=== PATIENT | female | born 1975 | race American Indian/Alaskan Native ===

== ENCOUNTER 2020-11-01 01:21 | Observation (INO) | payer MEDICARE ==
[2020-11-01] MEDS ORDERED: ONDANSETRON 4 MG/2 ML INJ IV ONE ×2 (01:42→03:16)
[2020-11-01] MEDS ORDERED: SODIUM CHLORIDE 0.9% 1000 ML 1,000 ML IV ONE (01:42)
[2020-11-01] MEDS ORDERED: FAMOTIDINE 20 MG/2 ML INJ IV ONE (01:42)
[2020-11-01] MEDS ORDERED: DICYCLOMINE 20 MG/2 ML INJ IM ONE (01:45)
--- NOTE | 2020-11-01 01:49 | Event Note ---
ED Screening Note Date of service: 11/01/20 Time: 01:45 ED Screening Note: Patient is a 44 yo AA female with a h/o morbid obesity, chronic heavy tobacco abuse, HTN and NIDDM who presents to the ED with c/o acute onset persistent intractable nausea, vomiting, diarrhea, and diffuse abdominal pain that radiates to the epigastric area for the last 18 hours. Patient states that she has not been able to keep anything by mouth since the onset of these symptoms. Patient states that nobody else at home has had similar symptoms. Patient denies fever, chills, hematemesis, hematochezia, chest pain, dyspnea, dysuria, vaginal bleeding or urinary urgency and frequency and sore throat. This initial assessment/diagnostic orders/clinical plan/treatment(s) is/are subject to change based on patients health status, clinical progression and re- assessment by fellow clinical providers in the ED. Further treatment and workup at subsequent clinical providers discretion. Patient/guardian urged not to elope from the ED as their condition may be serious if not clinically assessed and managed. Initial orders include: CBC, CMP, Lipase, EKG, troponin, UA, hcg serum, abdo-pelvis CT scan w/contrast
[2020-11-01 01:57] LABS: Hematocrit 44.2 % (30.3-42.9); Hemoglobin 14.7 gm/dl (10.1-14.3); Mean Corpuscular HGB Conc 33 % (30-34); Mean Corpuscular Volume 85 fl (79-97); Platelet Count 462 K/mm3 (140-440); Red Blood Count 5.18 M/mm3 (3.65-5.03); Red Cell Distribution Width 15.1 % (13.2-15.2)
[2020-11-01 02:22] LABS: Albumin 4.4 g/dL (3.9-5); Calcium 10.3 mg/dL (8.4-10.2)
[2020-11-01] MEDS ORDERED: MORPHINE 4 MG/1 ML INJ IV ONE (03:16)
[2020-11-01] MEDS ORDERED: SODIUM CHLORIDE 0.9% 500 ML 500 ML IV ONE (03:16)
--- NOTE | 2020-11-01 03:25 | Emergency Department Report ---
HPI - General Chief Complaint: Abdominal Pain Time Seen by Provider: 11/01/20 03:07 - [facility] HPI: This is a 44-year-old -[place]ub[place] female presents to the emergency department from home with a complaint of a 1-day history of nausea with vomiting, diarrhea, and mid to upper abdominal pain. She has a past medical history of hypertension, diabetes, stage IV chronic kidney disease, gout. She has not taken anything for symptoms prior to presentation. No recent travel or sick contacts at home. She denies any dysuria, vaginal bleeding or discharge, f ever, chest pain, shortness of breath, lower extremity swelling. ED Past Medical Hx - Past Medical History Hx Hypertension: Yes Hx Diabetes: Yes Hx Renal Disease: Yes (stage 4) - Surgical History Additional Surgical History: - Social History Smoking Status: Unknown if ever smoked ED Review of Systems ROS: Stated complaint: DIZZY; ABDOMINAL PAIN;POSSIBLE CONSTIPATION Other details as noted in HPI Comment: All other systems reviewed and negative Constitutional: denies: chills, fever Eyes: denies: eye pain, vision change ENT: denies: ear pain, throat pain Respiratory: denies: cough, shortness of breath Cardiovascular: denies: chest pain, palpitations Gastrointestinal: abdominal pain, nausea, vomiting Genitourinary: denies: dysuria, discharge Musculoskeletal: denies: back pain, arthralgia Skin: denies: rash, lesions Neurological: denies: headache, weakness Physical Exam - Physical Exam Vital Signs: Vital Signs 11/01/20 01:40 Temperature 97.7 F Pulse Rate 122 H Respiratory 18 Rate Blood Pressure 188/138 O2 Sat by Pulse 98 Oximetry Physical Exam: GENERAL: The patient is ill-appearing. HENT: Normocephalic. Atraumatic. Patient has moist mucous membranes. EYES: Extraocular motions are intact. NECK: Supple. Trachea is midline. CHEST/LUNGS: Clear to auscultation. There is no respiratory distress noted. HEART/CARDIOVASCULAR: Regular. There is mild to moderate tachycardia. There is no murmur. ABDOMEN: Abdomen is soft. Generalized abdominal tenderness to palpation. Patient has normal bowel sounds. Obese habitus. SKIN: Skin is warm and dry. NEURO: The patient is awake, alert, and oriented. The patient is cooperative. The patient has no focal neurologic deficits. Normal speech. MUSCULOSKELETAL: There is no tenderness or deformity. There is no limitation range of motion. ED Course Vital Signs 11/01/20 01:40 Temperature 97.7 F Pulse Rate 122 H Respiratory 18 Rate Blood Pressure 188/138 O2 Sat by Pulse 98 Oximetry ED Medical Decision Making - Lab Data Result diagrams: 11/01/20 01:47 11/01/20 01:47 Lab Results 11/01/20 11/01/20 11/01/20 Range/Units 01:47 01:47 01:47 WBC 23.5 H (4.5-11.0) K/mm3 RBC 5.18 H (3.65-5.03) M/mm3 Hgb 14.7 H (10.1-14.3) gm/dl Hct 44.2 H (30.3-42.9) % MCV 85 (79-97) fl MCH 28 (28-32) pg MCHC 33 (30-34) % RDW 15.1 (13.2-15.2) % Plt Count 462 H (140-440) K/mm3 Add Manual Diff Complete Total Counted 100 Seg Neuts % (Manual) 90.0 H (40.0-70.0) % Lymphocytes % (Manual) 8.0 L (13.4-35.0) % Monocytes % (Manual) 2.0 (0.0-7.3) % Nucleated RBC % Not Reportable Seg Neutrophils # Man 21.2 H (1.8-7.7) K/mm3 Band Neutrophils # 0.0 K/mm3 Lymphocytes # (Manual) 1.9 (1.2-5.4) K/mm3 Abs React Lymphs (Man) 0.0 K/mm3 Monocytes # (Manual) 0.5 (0.0-0.8) K/mm3 Eosinophils # (Manual) 0.0 (0.0-0.4) K/mm3 Basophils # (Manual) 0.0 (0.0-0.1) K/mm3 Metamyelocytes # 0.0 K/mm3 Myelocytes # 0.0 K/mm3 Promyelocytes # 0.0 K/mm3 Blast Cells # 0.0 K/mm3 WBC Morphology Not Reportable Hypersegmented Neuts Not Reportable Hyposegmented Neuts Not Reportable Hypogranular Neuts Not Reportable Smudge Cells Not Reportable Toxic Granulation Not Reportable Toxic Vacuolation Not Reportable Dohle Bodies Not Reportable Pelger-Huet Anomaly Not Reportable Torri Rods Not Reportable Platelet Estimate Consistent w auto Clumped Platelets Not Reportable Plt Clumps, EDTA Not Reportable Large Platelets Rare Giant Platelets Rare Platelet Satelliting Not Reportable Plt Morphology Comment Not Reportable RBC Morphology Not Reportable Dimorphic RBCs Not Reportable Polychromasia Not Reportable Hypochromasia Not Reportable Poikilocytosis Not Reportable Anisocytosis Not Reportable Microcytosis Not Reportable Macrocytosis Not Reportable Spherocytes Not Reportable Pappenheimer Bodies Not Reportable Sickle Cells Not Reportable Target Cells Not Reportable Tear Drop Cells Not Reportable Ovalocytes Not Reportable Helmet Cells Not Reportable Schwarz-[place] Bodies Not Reportable [place] Rings Not Reportable Ho Cells Not Reportable Bite Cells Not Reportable Crenated Cell Not Reportable Elliptocytes Not Reportable Acanthocytes (Spur) Not Reportable Rouleaux Not Reportable Hemoglobin C Crystals Not Reportable Schistocytes Not Reportable Malaria parasites Not Reportable Mike Bodies Not Reportable Hem Pathologist Commnt No Sodium 136 L (137-145) mmol/L Potassium 3.4 L (3.6-5.0) mmol/L Chloride 95.6 L (98-107) mmol/L Carbon Dioxide 22 (22-30) mmol/L Anion Gap 22 mmol/L BUN 33 H (7-17) mg/dL Creatinine 3.5 H (0.6-1.2) mg/dL Estimated GFR 14 ml/min BUN/Creatinine Ratio 9 % Glucose 232 H (65-100) mg/dL Calcium 10.3 H (8.4-10.2) mg/dL Total Bilirubin 0.20 (0.1-1.2) mg/dL AST 23 (5-40) units/L ALT 34 (7-56) units/L Alkaline Phosphatase 156 H (35-129) units/L Troponin T (0.00-0.029) ng/mL Total Protein 7.8 (6.3-8.2) g/dL Albumin 4.4 (3.9-5) g/dL Albumin/Globulin Ratio 1.3 % Lipase (13-60) units/L HCG, Qual Negative (Negative) 11/01/20 Range/Units 01:47 WBC (4.5-11.0) K/mm3 RBC (3.65-5.03) M/mm3 Hgb (10.1-14.3) gm/dl Hct (30.3-42.9) % MCV (79-97) fl MCH (28-32) pg MCHC (30-34) % RDW (13.2-15.2) % Plt Count (140-440) K/mm3 Add Manual Diff Total Counted Seg Neuts % (Manual) (40.0-70.0) % Lymphocytes % (Manual) (13.4-35.0) % Monocytes % (Manual) (0.0-7.3) % Nucleated RBC % Seg Neutrophils # Man (1.8-7.7) K/mm3 Band Neutrophils # K/mm3 Lymphocytes # (Manual) (1.2-5.4) K/mm3 Abs React Lymphs (Man) K/mm3 Monocytes # (Manual) (0.0-0.8) K/mm3 Eosinophils # (Manual) (0.0-0.4) K/mm3 Basophils # (Manual) (0.0-0.1) K/mm3 Metamyelocytes # K/mm3 Myelocytes # K/mm3 Promyelocytes # K/mm3 Blast Cells # K/mm3 WBC Morphology Hypersegmented Neuts Hyposegmented Neuts Hypogranular Neuts Smudge Cells Toxic Granulation Toxic Vacuolation Dohle Bodies Pelger-Huet Anomaly Torri Rods Platelet Estimate Clumped Platelets Plt Clumps, EDTA Large Platelets Giant Platelets Platelet Satelliting Plt Morphology Comment RBC Morphology Dimorphic RBCs Polychromasia Hypochromasia Poikilocytosis Anisocytosis Microcytosis Macrocytosis Spherocytes Pappenheimer Bodies Sickle Cells Target Cells Tear Drop Cells Ovalocytes Helmet Cells Schwarz-[place] Bodies [place] Rings [place] Cells Bite Cells Crenated Cell Elliptocytes Acanthocytes (Spur) Rouleaux Hemoglobin C Crystals Schistocytes Malaria parasites Mike Bodies Hem Pathologist Commnt Sodium (137-145) mmol/L Potassium (3.6-5.0) mmol/L Chloride (98-107) mmol/L Carbon Dioxide (22-30) mmol/L Anion Gap mmol/L BUN (7-17) mg/dL Creatinine (0.6-1.2) mg/dL Estimated GFR ml/min BUN/Creatinine Ratio % Glucose (65-100) mg/dL Calcium (8.4-10.2) mg/dL Total Bilirubin (0.1-1.2) mg/dL AST (5-40) units/L ALT (7-56) units/L Alkaline Phosphatase (35-129) units/L Troponin T < 0.010 (0.00-0.029) ng/mL Total Protein (6.3-8.2) g/dL Albumin (3.9-5) g/dL Albumin/Globulin Ratio % Lipase 22 (13-60) units/L HCG, Qual (Negative) - Radiology Data Radiology results: report reviewed CT ABDOMEN AND PELVIS WITHOUT CONTRAST INDICATION: Abd pain CONTRAST: Without IV COMPARISON: None available. All CT scans at this location are performed using CT dose reduction for ALARA by means of automated exposure control. NOTE: Resolution is decreased and artifact is introduced by the patient's size. FINDINGS: Lung bases show mild increased interstitial markings of unclear chronicity though I suspect these are chronic. Mild pulmonary edema is not excluded. Liver is enlarged and has a length of 21 cm. Focal lesions are seen. Spleen is not enlarged. Gallbladder is been removed. No biliary dilatation is seen. No abdominal masses are noted. No urinary tract calculi or evidence of obstruction are seen. No free fluid is noted. No evidence of bowel obstruction is seen. Appendix appears within normal limits. Most of the colon is decompressed making evaluation difficult. This is seen from the mid ascending colon contiguously to the rectum. However, there is an appearance of mild diffuse wall thickening as can be seen with hoover colitis. No evidence of perforation is seen. No obstructive changes are noted. A large uterine fundal leiomyoma is seen measuring 8.7 cm. Broad-based fatty umbilical hernia is seen. IMPRESSION: 1. Selective colon suggesting mild pancolitis 2. Hepatomegaly 3. Large uterine leiomyoma - Medical Decision Making This patient presents to the emergency department with a 1 day history of abdominal pain, nausea and vomiting. She has significant hypertension and mild to moderate tachycardia. During examination the patient is actively vomiting into a bag. There is some reproducible abdominal tenderness to palpation. Patient's labs shows a leukocytosis of about 24,000. There is some hyperglycemia with a blood sugar of about 220 but the patient does not appear in diabetic either acidosis. There is renal insufficiency consistent with her stage IV chronic kidney disease. The patient has been given 2 different doses of IV analgesia, IV antiemetics, IV antihypertensive medication, a small amount of IV fluid. Upon reevaluation she still complains of abdominal pain, as well as nausea with vomiting. CT scan of the abdomen and pelvis shows concern for pancolitis. With the intractable abdominal pain, leukocytosis, and CT findings of pancolitis, as well as the persistent hypertension and tachycardia, the patient will be admitted to the hospital for further evaluation and treatment and was accepted for admission by the hospitalist, Dr. Hayward. Critical Care Time: No Critical care attestation.: If time is entered above; I have spent that time in minutes in the direct care of this critically ill patient, excluding procedure time. ED Disposition Clinical Impression: Colitis, Intractable abdominal pain, Hypertensive urgency Leukocytosis Qualifiers: Leukocytosis type: unspecified Qualified Code(s): D72.829 - Elevated white blood cell count, unspecified Chronic kidney disease Qualifiers: Chronic kidney disease stage: unspecified stage Qualified Code(s): N18.9 - Chronic kidney disease, unspecified Disposition: 09 OP ADMIT IP TO THIS HOSP Is pt being admited?: Yes Condition: Serious Time of Disposition: 05:09
[2020-11-01 03:34] LABS: Total Cells Counted 100
[2020-11-01 03:35] LABS: Giant Platelets Rare
[2020-11-01 03:36] LABS: Large Platelets Rare; Platelet Estimate Consistent w Auto
--- NOTE | 2020-11-01 04:12 | Cat Scan Report ---
CT ABDOMEN AND PELVIS WITHOUT CONTRAST INDICATION: Abd pain CONTRAST: Without IV COMPARISON: None available. All CT scans at this location are performed using CT dose reduction for ALARA by means of automated e xposure control. NOTE: Resolution is decreased and artifact is introduced by the patient's size. FINDINGS: Lung bases show mild increased interstitial markings of unclear chronicity though I suspect these are chronic. Mild pulmonary edema is not excluded. Liver is enlarged and has a length of 21 cm. Focal lesions are seen. Spleen is not enlarged. Gallblad brandin is been removed. No biliary dilatation is seen. No abdominal masses are noted. No urinary tract c alculi or evidence of obstruction are seen. No free fluid is noted. No evidence of bowel obstruction is seen. Appendix appears within normal limits. Most of the colon is decompressed making evaluation difficult. This is seen from the mid ascending co juliet contiguously to the rectum. However, there is an appearance of mild diffuse wall thickening as ca n be seen with hoover colitis. No evidence of perforation is seen. No obstructive changes are noted. A large uterine fundal leiomyoma is seen measuring 8.7 cm. Broad-based fatty umbilical hernia is seen. IMPRESSION: 1. Selective colon suggesting mild pancolitis 2. Hepatomegaly 3. Large uterine leiomyoma Signer Name: Santi Hagan MD Signed: 11/01/2020 4:08 AM Workstation Name: [id number]
[2020-11-01] MEDS ORDERED: PIPERACIL/TAZOBACTA 4.5/NS 100 4.5 GM/100 ML VIAL IV ONE (04:44)
[2020-11-01] MEDS ORDERED: HYDROmorphone 1 MG/1 ML INJ IV ONE ×2 (04:44→07:34)
[2020-11-01] MEDS ORDERED: hydrALAZINE 20 MG/1 ML INJ IV ONE (05:08)
[2020-11-01] MEDS ORDERED: ALBUTEROL 2.5 MG/3 ML NEBU IH PRN (05:36)
[2020-11-01] MEDS ORDERED: hydrALAZINE 20 MG/1 ML INJ IV PRN (05:38)
--- NOTE | 2020-11-01 05:45 | History and Physical Report ---
History of Present Illness Date of examination: 11/01/20 Date of admission: 11/01/20 05:09 Chief complaint: Abdominal pain, nausea vomiting History of present illness: 44-year-old -Romanian female with past medical history of chronic kidney disease stage IV, diabetes, gout, hypertension was brought to the emergency department from home with a complaint of a 1-day history of nausea with vomiting, diarrhea, and mid to upper abdominal pain. She has not taken anything for symptoms prior to presentation. No recent travel or sick contacts at home. She denies any dysuria, vaginal bleeding or discharge, fever, chest pain, shortness of breath, lower extremity swelling. In the emergency room patient CT scan of the abdomen shows mild pancolitis Past History Past Medical History: diabetes, hypertension, renal failure, other (Gout) Medications and Allergies Allergies Allergy/AdvReac Type Severity Reaction Status Date / Time No Known Allergies Allergy Verified 11/01/20 02:12 Active Meds: Active Medications Acetaminophen (Acetaminophen 325 Mg Tab) 650 mg PO Q4H PRN PRN Reason: Pain MILD(1-3)/Fever >100.5/PACHECO Ondansetron HCl (Ondansetron 4 Mg/2 Ml Inj) 4 mg IV Q8H PRN PRN Reason: Nausea And Vomiting Sodium Chloride (Sodium Chloride 0.9% 10 Ml Flush Syringe) 10 ml IV BID GARRETT Review of Systems Gastrointestinal: abdominal pain, nausea, vomiting Exam - Constitutional Vitals: Temp Pulse Resp BP Pulse Ox 97.7 F 114 H 18 192/110 100 11/01/20 01:40 11/01/20 05:00 11/01/20 05:00 11/01/20 05:00 11/01/20 05:00 General appearance: Present: no acute distress, well-nourished - EENT Eyes: Present: PERRL ENT: hearing intact, clear oral mucosa - Neck Neck: Present: supple, normal ROM - Respiratory Respiratory effort: normal Respiratory: bilateral: CTA - Cardiovascular Heart Sounds: Present: S1 & S2. Absent: rub, click - Extremities Extremities: pulses symmetrical, No edema Peripheral Pulses: within normal limits - Abdominal General gastrointestinal: Present: soft, non-tender, non-distended, normal bowel sounds Female genitourinary: Present: normal - Integumentary Integumentary: Present: clear, warm, dry - Musculoskeletal Musculoskeletal: gait normal, strength equal bilaterally - Psychiatric Psychiatric: appropriate mood/affect, intact judgment & insight - Neurologic Neurologic: CNII-XII intact, moves all extremities HEART Score - HEART Score Troponin: Troponin T < 0.010 ng/mL (0.00-0.029) 11/01/20 01:47 Results - Labs CBC & Chem 7: 11/01/20 01:47 11/01/20 01:47 Labs: Laboratory Last Values WBC 23.5 K/mm3 (4.5-11.0) H 11/01/20 01:47 RBC 5.18 M/mm3 (3.65-5.03) H 11/01/20 01:47 Hgb 14.7 gm/dl (10.1-14.3) H 11/01/20 01:47 Hct 44.2 % (30.3-42.9) H 11/01/20 01:47 MCV 85 fl (79-97) 11/01/20 01:47 MCH 28 pg (28-32) 11/01/20 01:47 MCHC 33 % (30-34) 11/01/20 01:47 RDW 15.1 % (13.2-15.2) 11/01/20 01:47 Plt Count 462 K/mm3 (140-440) H 11/01/20 01:47 Add Manual Diff Complete 11/01/20 01:47 Total Counted 100 11/01/20 01:47 Seg Neuts % (Manual) 90.0 % (40.0-70.0) H 11/01/20 01:47 Lymphocytes % (Manual) 8.0 % (13.4-35.0) L 11/01/20 01:47 Monocytes % (Manual) 2.0 % (0.0-7.3) 11/01/20 01:47 Nucleated RBC % Not Reportable 11/01/20 01:47 Seg Neutrophils # Man 21.2 K/mm3 (1.8-7.7) H 11/01/20 01:47 Band Neutrophils # 0.0 K/mm3 11/01/20 01:47 Lymphocytes # (Manual) 1.9 K/mm3 (1.2-5.4) 11/01/20 01:47 Abs React Lymphs (Man) 0.0 K/mm3 11/01/20 01:47 Monocytes # (Manual) 0.5 K/mm3 (0.0-0.8) 11/01/20 01:47 Eosinophils # (Manual) 0.0 K/mm3 (0.0-0.4) 11/01/20 01:47 Basophils # (Manual) 0.0 K/mm3 (0.0-0.1) 11/01/20 01:47 Metamyelocytes # 0.0 K/mm3 11/01/20 01:47 Myelocytes # 0.0 K/mm3 11/01/20 01:47 Promyelocytes # 0.0 K/mm3 11/01/20 01:47 Blast Cells # 0.0 K/mm3 11/01/20 01:47 WBC Morphology Not Reportable 11/01/20 01:47 Hypersegmented Neuts Not Reportable 11/01/20 01:47 Hyposegmented Neuts Not Reportable 11/01/20 01:47 Hypogranular Neuts Not Reportable 11/01/20 01:47 Smudge Cells Not Reportable 11/01/20 01:47 Toxic Granulation Not Reportable 11/01/20 01:47 Toxic Vacuolation Not Reportable 11/01/20 01:47 Dohle Bodies Not Reportable 11/01/20 01:47 Pelger-Huet Anomaly Not Reportable 11/01/20 01:47 Torri Rods Not Reportable 11/01/20 01:47 Platelet Estimate Consistent w auto 11/01/20 01:47 Clumped Platelets Not Reportable 11/01/20 01:47 Plt Clumps, EDTA Not Reportable 11/01/20 01:47 Large Platelets Rare 11/01/20 01:47 Giant Platelets Rare 11/01/20 01:47 Platelet Satelliting Not Reportable 11/01/20 01:47 Plt Morphology Comment Not Reportable 11/01/20 01:47 RBC Morphology Not Reportable 11/01/20 01:47 Dimorphic RBCs Not Reportable 11/01/20 01:47 Polychromasia Not Reportable 11/01/20 01:47 Hypochromasia Not Reportable 11/01/20 01:47 Poikilocytosis Not Reportable 11/01/20 01:47 Anisocytosis Not Reportable 11/01/20 01:47 Microcytosis Not Reportable 11/01/20 01:47 Macrocytosis Not Reportable 11/01/20 01:47 Spherocytes Not Reportable 11/01/20 01:47 Pappenheimer Bodies Not Reportable 11/01/20 01:47 Sickle Cells Not Reportable 11/01/20 01:47 Target Cells Not Reportable 11/01/20 01:47 Tear Drop Cells Not Reportable 11/01/20 01:47 Ovalocytes Not Reportable 11/01/20 01:47 Helmet Cells Not Reportable 11/01/20 01:47 Schwarz-[place]ll[place] Bodies Not Reportable 11/01/20 01:47 [place] Rings Not Reportable 11/01/20 01:47 [place] Cells Not Reportable 11/01/20 01:47 Bite Cells Not Reportable 11/01/20 01:47 Crenated Cell Not Reportable 11/01/20 01:47 Elliptocytes Not Reportable 11/01/20 01:47 Acanthocytes (Spur) Not Reportable 11/01/20 01:47 Rouleaux Not Reportable 11/01/20 01:47 Hemoglobin C Crystals Not Reportable 11/01/20 01:47 Schistocytes Not Reportable 11/01/20 01:47 Malaria parasites Not Reportable 11/01/20 01:47 Mike Bodies Not Reportable 11/01/20 01:47 Hem Pathologist Commnt No 11/01/20 01:47 Sodium 136 mmol/L (137-145) L 11/01/20 01:47 Potassium 3.4 mmol/L (3.6-5.0) L 11/01/20 01:47 Chloride 95.6 mmol/L (98-107) L 11/01/20 01:47 Carbon Dioxide 22 mmol/L (22-30) 11/01/20 01:47 Anion Gap 22 mmol/L 11/01/20 01:47 BUN 33 mg/dL (7-17) H 11/01/20 01:47 Creatinine 3.5 mg/dL (0.6-1.2) H 11/01/20 01:47 Estimated GFR 14 ml/min 11/01/20 01:47 BUN/Creatinine Ratio 9 % 11/01/20 01:47 Glucose 232 mg/dL (65-100) H 11/01/20 01:47 Calcium 10.3 mg/dL (8.4-10.2) H 11/01/20 01:47 Total Bilirubin 0.20 mg/dL (0.1-1.2) 11/01/20 01:47 AST 23 units/L (5-40) 11/01/20 01:47 ALT 34 units/L (7-56) 11/01/20 01:47 Alkaline Phosphatase 156 units/L (35-129) H 11/01/20 01:47 Troponin T < 0.010 ng/mL (0.00-0.029) 11/01/20 01:47 Total Protein 7.8 g/dL (6.3-8.2) 11/01/20 01:47 Albumin 4.4 g/dL (3.9-5) 11/01/20 01:47 Albumin/Globulin Ratio 1.3 % 11/01/20 01:47 Lipase 22 units/L (13-60) 11/01/20 01:47 HCG, Qual Negative (Negative) 11/01/20 01:47 - Imaging and Cardiology CT scan - abdomen: report reviewed Assessment and Plan VTE prophylaxis?: Chemical Plan of care discussed with patient/family: Yes - Patient Problems (1) Colitis Current Visit: Yes Status: Acute Plan to address problem: Admit the patient to the medical floor. N.p.o. IV fluid normal saline at the rate of 100 cc/h. Pepcid 20 mg IV every 12 hours. Zofran 4 mg IV every 6 hours as needed. Zosyn 4.5 g IV every 8 hours. Flagyl 500 mg IV every 8 hours. We do the blood culture. We also consult GI for evaluation (2) Nausea & vomiting Current Visit: Yes Status: Acute Plan to address problem: N.p.o. IV fluid normal saline at the rate of 100 cc/h. Pepcid 20 mg IV every 12 hours. Zofran 4 mg IV every 6 hours as needed. (3) Diabetes 1.5, managed as type 2 Current Visit: Yes Status: Acute Plan to address problem: We will put the patient on insulin sliding scale Humalog Accu-Chek every 6 hours. Repeat BMP in the morning. (4) Chronic kidney disease Current Visit: Yes Status: Acute Qualifiers: Chronic kidney disease stage: unspecified stage Qualified Code(s): N18.9 - Chronic kidney disease, unspecified Plan to address problem: We avoid the nephrotoxic drug. We dose the medication as per creatinine clearance. Repeat BMP in the morning if needed will consult nephrology in the morning (5) Hypertensive urgency Current Visit: Yes Status: Acute Plan to address problem: Hydralazine 10 mg IV every 6 hours as needed. Norvasc 5 mg p.o. daily. We will monitor the blood pressure closely (6) Leukocytosis Current Visit: Yes Status: Acute Qualifiers: Leukocytosis type: unspecified Qualified Code(s): D72.829 - Elevated white blood cell count, unspecified Plan to address problem: Zosyn 4.5 g IV every 8 hours. Flagyl 500 mg IV every 8 hours. We do the blood culture. Recheck CBC in the morning (7) Intractable abdominal pain Current Visit: Yes Status: Acute Plan to address problem: Pepcid 20 mg IV every 12 hours. Tylenol 650 mg p.o. every 6 hours as needed. Morphine 2 mg IV every 4 hours as needed (8) DVT prophylaxis Current Visit: Yes Status: Acute Plan to address problem: Heparin 5000 units subcu every 8 hours for DVT prophylaxis. Pepcid 20 mg IV every 12 hours for GI prophylaxis. Patient is a full code
[2020-11-01] MEDS ORDERED: DEXTROSE 50% IN WATER (25GM) 50 ML SYRINGE IV PRN (05:48)
[2020-11-01] MEDS ORDERED: PIPERACIL/TAZOBACTA 4.5/NS 100 4.5 GM/100 ML VIAL IV SCH (06:00)
[2020-11-01] MEDS ORDERED: SODIUM CHLORIDE 0.45% 1000 ML 1,000 ML IV SCH (06:00)
[2020-11-01] MEDS ORDERED: D5W/0.45% NACL 1,000 ML IV SCH (06:00)
[2020-11-01] MEDS: ONDANSETRON 4 MG/2 ML INJ IV PRN ×2 (07:40→14:17)
[2020-11-01] MEDS: FAMOTIDINE 20 MG/2 ML INJ IV SCH ×2 (08:23→09:51)
[2020-11-01] MEDS: IPRATROPIUM/ALBUTEROL SULFATE 3 ML AMPUL.NEB IH SCH ×3 (08:45→19:54)
[2020-11-01] MEDS: HEPARIN 5,000 UNIT/1 ML VIAL SUB-Q SCH ×3 (09:49→13:12)
[2020-11-01] MEDS: metroNIDAZOLE/NS 500 MG/100 ML 500 MG/100 ML BAG IV SCH ×4 (09:49→19:57)
[2020-11-01] MEDS: INSULIN LISPRO 100 UNIT/ML SUB-Q SCH ×3 (09:50→18:49)
[2020-11-01] MEDS ORDERED: FAMOTIDINE 20 MG/2 ML INJ IV SCH (10:00)
--- NOTE | 2020-11-01 10:37 | Progress Note ---
Assessment and Plan Assessment and plan: -- acute colitis Current Visit: Yes Status: Acute N.p.o. 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 status Insulin as needed --Chronic kidney disease Current Visit: Yes Status: Acute Closely monitor renal function, avoid nephrotoxins, nephrology consulted --Hypertensive urgency present on admission Current Visit: Yes Status: Acute Hydralazine 10 mg IV every 6 hours as needed. Closely monitor blood pressures and adjust as needed --Hypokalemia; replenish per protocol and monitor levels --Leukocytosis Current Visit: Yes Status: Acute Due to acute colitis, continue antibiotics follow cultures -- Intractable abdominal pain Current Visit: Yes Status: Acute Pepcid 20 mg IV every 12 hours. Tylenol 650 mg p.o. every 6 hours as needed. Morphine 2 mg IV every 4 hours as needed --DVT prophylaxis Current Visit: Yes Status: Acute Heparin 5000 units subcu every 8 hours for DVT prophylaxis. Pepcid 20 mg IV every 12 hours for GI prophylaxis. Patient is a full code We will closely monitor the patient and adjust management as needed Plan of care reviewed with patient and her mother Ms. Rosaura Emanuel over the phone Pending GI evaluation History Interval history: I have seen and examined the patient at the bedside Patient complains of severe abdominal pain and intractable nausea vomiting In mild distress Vital signs noted Hospitalist Physical - Constitutional Vitals: Temp Pulse Resp BP Pulse Ox 97.7 F 123 H 17 185/102 98 11/01/20 01:40 11/01/20 08:23 11/01/20 07:00 11/01/20 08:23 11/01/20 07:00 General appearance: Present: mild distress, well-nourished, obese - EENT Eyes: Present: PERRL, EOM intact - Neck Neck: Present: supple, normal ROM - Respiratory Respiratory effort: normal Respiratory: bilateral: diminished, negative: rales, rhonchi, wheezing - Cardiovascular Rhythm: regular Heart Sounds: Present: S1 & S2 - Extremities Extremities: no ischemia, No edema - Abdominal General gastrointestinal: soft, tender (Mild guarding), non-distended, normal bowel sounds - Integumentary Integumentary: Present: clear, warm - Psychiatric Psychiatric: agitated, other (Crying because of pain) - Neurologic Neurologic: moves all extremities HEART Score - HEART Score Troponin: Troponin T < 0.010 ng/mL (0.00-0.029) 11/01/20 01:47 Results - Labs CBC & Chem 7: 11/01/20 18:36 11/01/20 18:35 Labs: Laboratory Last Values WBC 23.5 K/mm3 (4.5-11.0) H 11/01/20 01:47 RBC 5.18 M/mm3 (3.65-5.03) H 11/01/20 01:47 Hgb 14.7 gm/dl (10.1-14.3) H 11/01/20 01:47 Hct 44.2 % (30.3-42.9) H 11/01/20 01:47 MCV 85 fl (79-97) 11/01/20 01:47 MCH 28 pg (28-32) 11/01/20 01:47 MCHC 33 % (30-34) 11/01/20 01:47 RDW 15.1 % (13.2-15.2) 11/01/20 01:47 Plt Count 462 K/mm3 (140-440) H 11/01/20 01:47 Add Manual Diff Complete 11/01/20 01:47 Total Counted 100 11/01/20 01:47 Seg Neuts % (Manual) 90.0 % (40.0-70.0) H 11/01/20 01:47 Lymphocytes % (Manual) 8.0 % (13.4-35.0) L 11/01/20 01:47 Monocytes % (Manual) 2.0 % (0.0-7.3) 11/01/20 01:47 Nucleated RBC % Not Reportable 11/01/20 01:47 Seg Neutrophils # Man 21.2 K/mm3 (1.8-7.7) H 11/01/20 01:47 Band Neutrophils # 0.0 K/mm3 11/01/20 01:47 Lymphocytes # (Manual) 1.9 K/mm3 (1.2-5.4) 11/01/20 01:47 Abs React Lymphs (Man) 0.0 K/mm3 11/01/20 01:47 Monocytes # (Manual) 0.5 K/mm3 (0.0-0.8) 11/01/20 01:47 Eosinophils # (Manual) 0.0 K/mm3 (0.0-0.4) 11/01/20 01:47 Basophils # (Manual) 0.0 K/mm3 (0.0-0.1) 11/01/20 01:47 Metamyelocytes # 0.0 K/mm3 11/01/20 01:47 Myelocytes # 0.0 K/mm3 11/01/20 01:47 Promyelocytes # 0.0 K/mm3 11/01/20 01:47 Blast Cells # 0.0 K/mm3 11/01/20 01:47 WBC Morphology Not Reportable 11/01/20 01:47 Hypersegmented Neuts Not Reportable 11/01/20 01:47 Hyposegmented Neuts Not Reportable 11/01/20 01:47 Hypogranular Neuts Not Reportable 11/01/20 01:47 Smudge Cells Not Reportable 11/01/20 01:47 Toxic Granulation Not Reportable 11/01/20 01:47 Toxic Vacuolation Not Reportable 11/01/20 01:47 Dohle Bodies Not Reportable 11/01/20 01:47 Pelger-Huet Anomaly Not Reportable 11/01/20 01:47 Torri Rods Not Reportable 11/01/20 01:47 Platelet Estimate Consistent w auto 11/01/20 01:47 Clumped Platelets Not Reportable 11/01/20 01:47 Plt Clumps, EDTA Not Reportable 11/01/20 01:47 Large Platelets Rare 11/01/20 01:47 Giant Platelets Rare 11/01/20 01:47 Platelet Satelliting Not Reportable 11/01/20 01:47 Plt Morphology Comment Not Reportable 11/01/20 01:47 RBC Morphology Not Reportable 11/01/20 01:47 Dimorphic RBCs Not Reportable 11/01/20 01:47 Polychromasia Not Reportable 11/01/20 01:47 Hypochromasia Not Reportable 11/01/20 01:47 Poikilocytosis Not Reportable 11/01/20 01:47 Anisocytosis Not Reportable 11/01/20 01:47 Microcytosis Not Reportable 11/01/20 01:47 Macrocytosis Not Reportable 11/01/20 01:47 Spherocytes Not Reportable 11/01/20 01:47 Pappenheimer Bodies Not Reportable 11/01/20 01:47 Sickle Cells Not Reportable 11/01/20 01:47 Target Cells Not Reportable 11/01/20 01:47 Tear Drop Cells Not Reportable 11/01/20 01:47 Ovalocytes Not Reportable 11/01/20 01:47 Helmet Cells Not Reportable 11/01/20 01:47 Schwarz-[place] Bodies Not Reportable 11/01/20 01:47 [place] Rings Not Reportable 11/01/20 01:47 Ho Cells Not Reportable 11/01/20 01:47 Bite Cells Not Reportable 11/01/20 01:47 Crenated Cell Not Reportable 11/01/20 01:47 Elliptocytes Not Reportable 11/01/20 01:47 Acanthocytes (Spur) Not Reportable 11/01/20 01:47 Rouleaux Not Reportable 11/01/20 01:47 Hemoglobin C Crystals Not Reportable 11/01/20 01:47 Schistocytes Not Reportable 11/01/20 01:47 Malaria parasites Not Reportable 11/01/20 01:47 Mike Bodies Not Reportable 11/01/20 01:47 Hem Pathologist Commnt No 11/01/20 01:47 Sodium 136 mmol/L (137-145) L 11/01/20 01:47 Potassium 3.4 mmol/L (3.6-5.0) L 11/01/20 01:47 Chloride 95.6 mmol/L (98-107) L 11/01/20 01:47 Carbon Dioxide 22 mmol/L (22-30) 11/01/20 01:47 Anion Gap 22 mmol/L 11/01/20 01:47 BUN 33 mg/dL (7-17) H 11/01/20 01:47 Creatinine 3.5 mg/dL (0.6-1.2) H 11/01/20 01:47 Estimated GFR 14 ml/min 11/01/20 01:47 BUN/Creatinine Ratio 9 % 11/01/20 01:47 Glucose 232 mg/dL (65-100) H 11/01/20 01:47 Calcium 10.3 mg/dL (8.4-10.2) H 11/01/20 01:47 Total Bilirubin 0.20 mg/dL (0.1-1.2) 11/01/20 01:47 AST 23 units/L (5-40) 11/01/20 01:47 ALT 34 units/L (7-56) 11/01/20 01:47 Alkaline Phosphatase 156 units/L (35-129) H 11/01/20 01:47 Troponin T < 0.010 ng/mL (0.00-0.029) 11/01/20 01:47 Total Protein 7.8 g/dL (6.3-8.2) 11/01/20 01:47 Albumin 4.4 g/dL (3.9-5) 11/01/20 01:47 Albumin/Globulin Ratio 1.3 % 11/01/20 01:47 Lipase 22 units/L (13-60) 11/01/20 01:47 HCG, Qual Negative (Negative) 11/01/20 01:47 Active Medications - Current Medications Current Medications: Generic Name Dose Route Start Last Admin Trade Name Freq PRN Reason Stop Dose Admin Acetaminophen 650 mg 11/01/20 05:36 Acetaminophen 325 Mg Tab PO Q4H PRN Pain MILD(1-3)/Fever >100.5/PACHECO Albuterol 2.5 mg 11/01/20 05:36 Albuterol 2.5 Mg/3 Ml Nebu IH Q4HRT PRN Shortness Of Breath Albuterol/Ipratropium 1 ampul 11/01/20 08:00 11/01/20 08:45 Ipratropium/Albuterol Sulfate 3 Ml Ampul.Neb IH Not Given Q6HRT GARRETT Dextrose 50 ml 11/01/20 05:48 Dextrose 50% In Water (25gm) 50 Ml Syringe IV Q30MIN PRN Hypoglycemia Protocol Famotidine 20 mg 11/01/20 10:00 11/01/20 09:51 Famotidine 20 Mg/2 Ml Inj IV Not Given DAILY [facility] Heparin Sodium (Porcine) 5,000 unit 11/01/20 06:00 11/01/20 09:49 Heparin 5,000 Unit/1 Ml Vial SUB-Q Not Given Q8HR [facility] Hydralazine HCl 10 mg 11/01/20 05:38 11/01/20 08:23 Hydralazine 20 Mg/1 Ml Inj IV 10 mg Q6H PRN Administration htn Metronidazole 500 mg in 100 mls @ 100 mls/hr 11/01/20 06:00 11/01/20 09:49 Flagyl 500 Mg/100 Ml IV Not Given Q8H [facility] Protocol Piperacillin Sod/Tazobactam Sod 3.375 gm in 50 mls @ 100 mls/hr 11/01/20 14:00 Zosyn/Ns 3.375gm/50ml IV Q8H [facility] Protocol Sodium Chloride 1,000 mls @ 100 mls/hr 11/01/20 06:00 Nacl 0.45% 1000 Ml IV DIRECT GARRETT Insulin Human Lispro 0 unit 11/01/20 06:00 11/01/20 09:50 Insulin Lispro 100 Unit/Ml SUB-Q Not Given Q6HR [facility] Protocol Morphine Sulfate 2 mg 11/01/20 05:36 Morphine 2 Mg/1 Ml Inj IV Q4H PRN Pain, Moderate (4-6) Ondansetron HCl 4 mg 11/01/20 05:36 11/01/20 07:40 Ondansetron 4 Mg/2 Ml Inj IV 4 mg Q8H PRN Administration Nausea And Vomiting Sodium Chloride 10 ml 11/01/20 10:00 Sodium Chloride 0.9% 10 Ml Flush Syringe IV BID GARRETT Sodium Chloride 10 ml 11/01/20 05:36 Sodium Chloride 0.9% 10 Ml Flush Syringe IV PRN PRN LINE FLUSH Nutrition/Malnutrition Assess - Dietary Evaluation Nutrition/Malnutrition Findings: Nutrition Notes Start: 11/01/20 10:19 Freq: Status: Active Protocol: Document 11/01/20 10:19 LP (Rec: 11/01/20 10:33 LP [id number]) Nutrition Notes Need for Assessment generated from: MD Order Initial or Follow up Assessment Current Diagnosis CKD(stage I-IV),Diabetes, Hypertension Other Pertinent Diagnosis Abdominal pain, N/V Current Diet NPO Labs/Tests Na 136 K 3.4 BUN 33 Cr 3.5 BG 232 Pertinent Medications 1/2 NS at 100ml/hr Height 5 ft 9 in Weight 122.47 kg [place] Body Weight (kg) 65.90 BMI 39.9 Weight change and time frame 5% wt loss in 5 days Weight Status Morbidly Obese Subjective/Other Information Consult for diet education. Pt with abdominal pain and has not ate anything since . Pt UBW 284lbs. Pt does not consume banana. Pt states not taking medications due to being sick. Pt will be ok to have ONS. Burn Absent Trauma Absent GI Symptoms Nausea,Vomiting,Other Current % PO Negligible Minimum of two criteria Yes Energy Intake (severe) < or equal to 50% Estimated Energy Requirement > or equal to 5 days Interpretation of Weight Loss (severe) >2% in 1 week Nutrition Diagnosis Malnutrition Etiology chronic illness As Evidenced by Signs and Symptoms 5% wt loss in 5 day, less than 50% of meals in 5 days Nutrition Diagnosis Inadequate oral intake Etiology abdominal pain As Evidenced by Signs and Symptoms Pt with N/V and unable to consume PO Is patient on ventilator? No Is Patient Ambulatory and/or Out of Bed Yes REE-([facility]-ambulatory/OOB) [ 2533.804 [id number]] Kcal/Kg value to use for calculation 15 Approximate Energy Requirements Using 1837 kcal/Kg Calculation Used for Recommendations Kcal/kg Additional Notes Protein needs are 75-94g (0.8- 1g/kg 93.5g/kg) Fluid needs are 1 ml/kcal Nutrition Intervention Change Diet Order: Advance diet as feasible Add Supplement/Snack (indicate name/kcal once diet advanced Ensure /protein ) clear BID or Ensure Enlive BID Goal #1 Advance diet as feasible Anticipated Discharge Needs: Unable to determine at this time Follow-Up By: 11/03/20 Additional Comments Follow for diet advancement, intakes and add ONS
[2020-11-01] MEDS: hydrALAZINE 25 MG TAB PO SCH ×2 (12:00→22:00)
[2020-11-01] MEDS: PIPERACILLIN/TAZOBACTAM 3.375 3.375 GM/50 ML BAG IV SCH ×2 (13:14→22:00)
[2020-11-01] MEDS: MORPHINE 2 MG/1 ML INJ IV PRN ×2 (13:19→17:53)
[2020-11-01] MEDS ORDERED: ONDANSETRON 4 MG/2 ML INJ IV PRN (14:13)
[2020-11-01] MEDS: hydrALAZINE 20 MG/1 ML INJ IV PRN ×2 (15:33→23:15)
[2020-11-01] MEDS ORDERED: MORPHINE 2 MG/1 ML INJ IV ONE (17:56)
--- NOTE | 2020-11-01 17:57 | Consultation ---
History of Present Illness - Reason for Consult Consult date: 11/01/20 Abdominal pain, N/V Requesting physician: MARIAA SUAZO - History of Present Illness Ms. Emanuel is a 44-year-old woman who came from [place] to drop off her grandchildren recently. She states she was well but did not have a bowel movement for approximately a week until yesterday morning. She subsequently states she developed nausea vomiting and epigastric pain. She took Zofran ODT as well as Pepto-Bismol at home without relief. The pain has been unremitting and gradually progressive. Have been no clear exacerbating or relieving factors. There is no fever chills or sweats. She had another soft brown bowel movement this morning. There is no GI bleeding. Patient denies prior similar symptoms. She has a history of poorly controlled diabetes, hypertension, and stage IV chronic kidney disease. She has a history of "stomach ulcers" since she was a little girl. No endoscopy and years. She has a 4 to 5-year history of intermittent nausea without any clear etiology. She states she had ultrasound and CAT scan done in the past that were negative. Medications reviewed. Past History Past Medical History: diabetes, hypertension, renal failure (Stage 4 CKD), other (Gout) Past Surgical History: cholecystectomy Social history: denies: smoking, alcohol abuse Family history: no significant family history Medications and Allergies Allergies Allergy/AdvReac Type Severity Reaction Status Date / Time No Known Allergies Allergy Verified 11/01/20 02:12 Home Medications Medication Instructions Recorded Confirmed Last Taken Type Semaglutide [Ozempic] 0.5 mg SQ 1XW 11/01/20 11/01/20 Unknown History Active Meds: Active Medications Acetaminophen (Acetaminophen 325 Mg Tab) 650 mg PO Q4H PRN PRN Reason: Pain MILD(1-3)/Fever >100.5/PACHECO Albuterol (Albuterol 2.5 Mg/3 Ml Nebu) 2.5 mg IH Q4HRT PRN PRN Reason: Shortness Of Breath Albuterol/Ipratropium (Ipratropium/Albuterol Sulfate 3 Ml Ampul.Neb) 1 ampul IH Q6HRT GARRETT Last Admin: 11/01/20 14:15 Dose: Not Given Documented by: Dextrose (Dextrose 50% In Water (25gm) 50 Ml Syringe) 50 ml IV Q30MIN PRN; Protocol PRN Reason: Hypoglycemia Famotidine (Famotidine 20 Mg/2 Ml Inj) 20 mg IV DAILY [facility] Last Admin: 11/01/20 09:51 Dose: Not Given Documented by: Heparin Sodium (Porcine) (Heparin 5,000 Unit/1 Ml Vial) 5,000 unit SUB-Q Q8HR GARRETT Last Admin: 11/01/20 13:12 Dose: Not Given Documented by: Hydralazine HCl (Hydralazine 25 Mg Tab) 50 mg PO Q8HR G[facility]RETT Last Admin: 11/01/20 12:00 Dose: 50 mg Documented by: Hydralazine HCl (Hydralazine 20 Mg/1 Ml Inj) 10 mg IV Q4H PRN PRN Reason: htn Last Admin: 11/01/20 15:33 Dose: 10 mg Documented by: Metronidazole (Flagyl 500 Mg/100 Ml) 500 mg in 100 mls @ 100 mls/hr IV Q8H [facility]; Protocol Last Admin: 11/01/20 13:08 Dose: Not Given Documented by: Piperacillin Sod/Tazobactam Sod (Zosyn/Ns 3.375gm/50ml) 3.375 gm in 50 mls @ 100 mls/hr IV Q8H [facility]; Protocol Last Admin: 11/01/20 13:14 Dose: 100 mls/hr Documented by: Sodium Chloride (Nacl 0.45% 1000 Ml) 1,000 mls @ 100 mls/hr IV DIRECT GARRETT Last Admin: 11/01/20 11:40 Dose: 100 mls/hr Documented by: Insulin Human Lispro (Insulin Lispro 100 Unit/Ml) 0 unit SUB-Q Q6HR [facility]; Protocol Last Admin: 11/01/20 12:01 Dose: Not Given Documented by: Morphine Sulfate (Morphine 2 Mg/1 Ml Inj) 2 mg IV Q4H PRN PRN Reason: Pain, Moderate (4-6) Last Admin: 11/01/20 13:19 Dose: 2 mg Documented by: Ondansetron HCl (Ondansetron 4 Mg/2 Ml Inj) 4 mg IV Q8H PRN PRN Reason: Nausea And Vomiting Last Admin: 11/01/20 14:17 Dose: 4 mg Documented by: Ondansetron HCl (Ondansetron 4 Mg/2 Ml Inj) 4 mg IV Q4H PRN PRN Reason: Nausea And Vomiting Sodium Chloride (Sodium Chloride 0.9% 10 Ml Flush Syringe) 10 ml IV BID GARRETT Last Admin: 11/01/20 12:01 Dose: 10 ml Documented by: Sodium Chloride (Sodium Chloride 0.9% 10 Ml Flush Syringe) 10 ml IV PRN PRN PRN Reason: LINE FLUSH Review of Systems All systems: negative (as per HPI) Exam - Constitutional Vitals: Temp Pulse Resp BP Pulse Ox 97.7 F 120 H 20 154/112 99 11/01/20 01:40 11/01/20 15:38 11/01/20 15:38 11/01/20 15:33 11/01/20 15:38 General appearance: Present: severe distress (moderately severe, moving about on bed to try and get comfortable.) - EENT Eyes: Present: PERRL, EOM intact ENT: hearing intact - Respiratory Respiratory effort: normal Respiratory: bilateral: CTA - Cardiovascular Rhythm: regular Heart Sounds: Present: S1 & S2 - Abdominal General gastrointestinal: Present: soft, tender (Mild epigastric) Results - Labs CBC & Chem 7: 11/01/20 01:47 11/01/20 01:47 Labs: Abnormal lab results 11/01/20 11/01/20 11/01/20 Range/Units 01:47 01:47 12:07 WBC 23.5 H (4.5-11.0) K/mm3 RBC 5.18 H (3.65-5.03) M/mm3 Hgb 14.7 H (10.1-14.3) gm/dl Hct 44.2 H (30.3-42.9) % Plt Count 462 H (140-440) K/mm3 Seg Neuts % (Manual) 90.0 H (40.0-70.0) % Lymphocytes % (Manual) 8.0 L (13.4-35.0) % Seg Neutrophils # Man 21.2 H (1.8-7.7) K/mm3 Sodium 136 L (137-145) mmol/L Potassium 3.4 L (3.6-5.0) mmol/L Chloride 95.6 L (98-107) mmol/L BUN 33 H (7-17) mg/dL Creatinine 3.5 H (0.6-1.2) mg/dL Glucose 232 H (65-100) mg/dL POC Glucose 186 H (70-105) mg/dL Calcium 10.3 H (8.4-10.2) mg/dL Alkaline Phosphatase 156 H (35-129) units/L Assessment and Plan 1. Abdominal pain/nausea/vomiting -etiology unclear. White count is elevated. Symptoms are worrisome for mesenteric ischemia. CT was done without IV contrast or oral contrast in the emergency room, but shows no clear findings. Patient is uncomfortable and pain is out of proportion to physical findings. This raises concern for ischemic bowel. This is unlikely to be consistent with peptic ulcer disease but empiric proton pump inhibitors are appropriate. Endoscopic evaluation is not available here. -Urgent surgical evaluation to assess for ischemic bowel. -Empiric proton pump inhibitors and antibiotics. Discussed with Dr. Suazo. Will follow.
[2020-11-01 19:15] LABS: Albumin 3.5 g/dL (3.9-5); Calcium 9.6 mg/dL (8.4-10.2)
--- NOTE | 2020-11-01 19:21 | Progress Note ---
History Interval history: Dr. Cunningham /GI evaluated the patient, he feels that it is ischemic colitis and requested to consult surgery stat And new set of labs CBC lactic acid another fresh set of labs ordered stat. I called and discussed the case with Dr. Ziegler the surgeon who already spoke with GI. Patient is n.p.o. status, hemodynamically stable, will update patient's mother. Hospitalist Physical - Constitutional Vitals: Temp Pulse Resp BP Pulse Ox 97.7 F 119 H 24 141/97 100 11/01/20 01:40 11/01/20 18:04 11/01/20 18:04 11/01/20 18:04 11/01/20 18:04 General appearance: Present: mild distress, well-nourished, obese HEART Score - HEART Score Troponin: Troponin T < 0.010 ng/mL (0.00-0.029) 11/01/20 01:47 Results - Labs CBC & Chem 7: 11/01/20 01:47 11/01/20 18:35 Labs: Laboratory Last Values WBC 23.5 K/mm3 (4.5-11.0) H 11/01/20 01:47 RBC 5.18 M/mm3 (3.65-5.03) H 11/01/20 01:47 Hgb 14.7 gm/dl (10.1-14.3) H 11/01/20 01:47 Hct 44.2 % (30.3-42.9) H 11/01/20 01:47 MCV 85 fl (79-97) 11/01/20 01:47 MCH 28 pg (28-32) 11/01/20 01:47 MCHC 33 % (30-34) 11/01/20 01:47 RDW 15.1 % (13.2-15.2) 11/01/20 01:47 Plt Count 462 K/mm3 (140-440) H 11/01/20 01:47 Add Manual Diff Complete 11/01/20 01:47 Total Counted 100 11/01/20 01:47 Seg Neuts % (Manual) 90.0 % (40.0-70.0) H 11/01/20 01:47 Lymphocytes % (Manual) 8.0 % (13.4-35.0) L 11/01/20 01:47 Monocytes % (Manual) 2.0 % (0.0-7.3) 11/01/20 01:47 Nucleated RBC % Not Reportable 11/01/20 01:47 Seg Neutrophils # Man 21.2 K/mm3 (1.8-7.7) H 11/01/20 01:47 Band Neutrophils # 0.0 K/mm3 11/01/20 01:47 Lymphocytes # (Manual) 1.9 K/mm3 (1.2-5.4) 11/01/20 01:47 Abs React Lymphs (Man) 0.0 K/mm3 11/01/20 01:47 Monocytes # (Manual) 0.5 K/mm3 (0.0-0.8) 11/01/20 01:47 Eosinophils # (Manual) 0.0 K/mm3 (0.0-0.4) 11/01/20 01:47 Basophils # (Manual) 0.0 K/mm3 (0.0-0.1) 11/01/20 01:47 Metamyelocytes # 0.0 K/mm3 11/01/20 01:47 Myelocytes # 0.0 K/mm3 11/01/20 01:47 Promyelocytes # 0.0 K/mm3 11/01/20 01:47 Blast Cells # 0.0 K/mm3 11/01/20 01:47 WBC Morphology Not Reportable 11/01/20 01:47 Hypersegmented Neuts Not Reportable 11/01/20 01:47 Hyposegmented Neuts Not Reportable 11/01/20 01:47 Hypogranular Neuts Not Reportable 11/01/20 01:47 Smudge Cells Not Reportable 11/01/20 01:47 Toxic Granulation Not Reportable 11/01/20 01:47 Toxic Vacuolation Not Reportable 11/01/20 01:47 Dohle Bodies Not Reportable 11/01/20 01:47 Pelger-Huet Anomaly Not Reportable 11/01/20 01:47 Torri Rods Not Reportable 11/01/20 01:47 Platelet Estimate Consistent w auto 11/01/20 01:47 Clumped Platelets Not Reportable 11/01/20 01:47 Plt Clumps, EDTA Not Reportable 11/01/20 01:47 Large Platelets Rare 11/01/20 01:47 Giant Platelets Rare 11/01/20 01:47 Platelet Satelliting Not Reportable 11/01/20 01:47 Plt Morphology Comment Not Reportable 11/01/20 01:47 RBC Morphology Not Reportable 11/01/20 01:47 Dimorphic RBCs Not Reportable 11/01/20 01:47 Polychromasia Not Reportable 11/01/20 01:47 Hypochromasia Not Reportable 11/01/20 01:47 Poikilocytosis Not Reportable 11/01/20 01:47 Anisocytosis Not Reportable 11/01/20 01:47 Microcytosis Not Reportable 11/01/20 01:47 Macrocytosis Not Reportable 11/01/20 01:47 Spherocytes Not Reportable 11/01/20 01:47 Pappenheimer Bodies Not Reportable 11/01/20 01:47 Sickle Cells Not Reportable 11/01/20 01:47 Target Cells Not Reportable 11/01/20 01:47 Tear Drop Cells Not Reportable 11/01/20 01:47 Ovalocytes Not Reportable 11/01/20 01:47 Helmet Cells Not Reportable 11/01/20 01:47 Schwarz-Funk Bodies Not Reportable 11/01/20 01:47 [place] Rings Not Reportable 11/01/20 01:47 Ho Cells Not Reportable 11/01/20 01:47 Bite Cells Not Reportable 11/01/20 01:47 Crenated Cell Not Reportable 11/01/20 01:47 Elliptocytes Not Reportable 11/01/20 01:47 Acanthocytes (Spur) Not Reportable 11/01/20 01:47 Rouleaux Not Reportable 11/01/20 01:47 Hemoglobin C Crystals Not Reportable 11/01/20 01:47 Schistocytes Not Reportable 11/01/20 01:47 Malaria parasites Not Reportable 11/01/20 01:47 Mike Bodies Not Reportable 11/01/20 01:47 Hem Pathologist Commnt No 11/01/20 01:47 Sodium 134 mmol/L (137-145) L 11/01/20 18:35 Potassium 3.4 mmol/L (3.6-5.0) L 11/01/20 01:47 Chloride 94.7 mmol/L (98-107) L 11/01/20 18:35 Carbon Dioxide 20 mmol/L (22-30) L 11/01/20 18:35 Anion Gap 22 mmol/L 11/01/20 18:35 BUN 31 mg/dL (7-17) H 11/01/20 18:35 Creatinine 2.9 mg/dL (0.6-1.2) H 11/01/20 18:35 Estimated GFR 22 ml/min 11/01/20 18:35 BUN/Creatinine Ratio 11 % 11/01/20 18:35 Glucose 165 mg/dL (65-100) H 11/01/20 18:35 POC Glucose 186 mg/dL (70-105) H 11/01/20 12:07 Lactic Acid 1.20 mmol/L (0.7-2.0) 11/01/20 18:35 Calcium 9.6 mg/dL (8.4-10.2) 11/01/20 18:35 Total Bilirubin 0.30 mg/dL (0.1-1.2) 11/01/20 18:35 AST 22 units/L (5-40) 11/01/20 18:35 ALT 28 units/L (7-56) 11/01/20 18:35 Alkaline Phosphatase 136 units/L (35-129) H 11/01/20 18:35 Troponin T < 0.010 ng/mL (0.00-0.029) 11/01/20 01:47 Total Protein 8.2 g/dL (6.3-8.2) 11/01/20 18:35 Albumin 3.5 g/dL (3.9-5) L 11/01/20 18:35 Albumin/Globulin Ratio 0.7 % 11/01/20 18:35 Lipase 22 units/L (13-60) 11/01/20 01:47 HCG, Qual Negative (Negative) 11/01/20 01:47 Microbiology: Microbiology 11/01/20 05:33 Peripheral/Venous Blood Culture - Preliminary Culture in Progress 11/01/20 04:55 Peripheral/Venous Blood Culture - Preliminary Culture in Progress [place]/IV: Voiding Method Toilet Active Medications - Current Medications Current Medications: Generic Name Dose Route Start Last Admin Trade Name Freq PRN Reason Stop Dose Admin Acetaminophen 650 mg 11/01/20 05:36 Acetaminophen 325 Mg Tab PO Q4H PRN Pain MILD(1-3)/Fever >100.5/PACHECO Albuterol 2.5 mg 11/01/20 05:36 Albuterol 2.5 Mg/3 Ml Nebu IH Q4HRT PRN Shortness Of Breath Albuterol/Ipratropium 1 ampul 11/01/20 08:00 11/01/20 14:15 Ipratropium/Albuterol Sulfate 3 Ml Ampul.Neb IH Not Given Q6HRT [facility] Dextrose 50 ml 11/01/20 05:48 Dextrose 50% In Water (25gm) 50 Ml Syringe IV Q30MIN PRN Hypoglycemia Protocol Famotidine 20 mg 11/01/20 10:00 11/01/20 09:51 Famotidine 20 Mg/2 Ml Inj IV Not Given DAILY [facility] Heparin Sodium (Porcine) 5,000 unit 11/01/20 06:00 11/01/20 13:12 Heparin 5,000 Unit/1 Ml Vial SUB-Q Not Given Q8HR [facility] Hydralazine HCl 50 mg 11/01/20 12:00 11/01/20 12:00 Hydralazine 25 Mg Tab PO 50 mg Q8HR [facility] Administration Hydralazine HCl 10 mg 11/01/20 11:00 11/01/20 15:33 Hydralazine 20 Mg/1 Ml Inj IV 10 mg Q4H PRN Administration htn Metronidazole 500 mg in 100 mls @ 100 mls/hr 11/01/20 06:00 11/01/20 13:08 Flagyl 500 Mg/100 Ml IV Not Given Q8H [facility] Protocol Piperacillin Sod/Tazobactam Sod 3.375 gm in 50 mls @ 100 mls/hr 11/01/20 14:00 11/01/20 13:14 Zosyn/Ns 3.375gm/50ml IV 100 mls/hr Q8H [facility] Administration Protocol Sodium Chloride 1,000 mls @ 100 mls/hr 11/01/20 06:00 11/01/20 11:40 Nacl 0.45% 1000 Ml IV 100 mls/hr DIRECT [facility] Administration Insulin Human Lispro 0 unit 11/01/20 06:00 11/01/20 18:49 Insulin Lispro 100 Unit/Ml SUB-Q Not Given Q6HR [facility] Protocol Morphine Sulfate 2 mg 11/01/20 05:36 11/01/20 17:53 Morphine 2 Mg/1 Ml Inj IV 2 mg Q4H PRN Administration Pain, Moderate (4-6) Ondansetron HCl 4 mg 11/01/20 05:36 11/01/20 14:17 Ondansetron 4 Mg/2 Ml Inj IV 4 mg Q8H PRN Administration Nausea And Vomiting Ondansetron HCl 4 mg 11/01/20 14:13 Ondansetron 4 Mg/2 Ml Inj IV Q4H PRN Nausea And Vomiting Pantoprazole Sodium 40 mg 11/01/20 18:18 Pantoprazole 40 Mg Inj IV BID [facility] Sodium Chloride 10 ml 11/01/20 10:00 11/01/20 12:01 Sodium Chloride 0.9% 10 Ml Flush Syringe IV 10 ml BID [facility] Administration Sodium Chloride 10 ml 11/01/20 05:36 Sodium Chloride 0.9% 10 Ml Flush Syringe IV PRN PRN LINE FLUSH Nutrition/Malnutrition Assess - Dietary Evaluation Nutrition/Malnutrition Findings: Nutrition Notes Start: 11/01/20 10:19 Freq: Status: Active Protocol: Document 11/01/20 10:19 LP (Rec: 11/01/20 10:33 LP [id number]) Nutrition Notes Need for Assessment generated from: MD Order Initial or Follow up Assessment Current Diagnosis CKD(stage I-IV),Diabetes, Hypertension Other Pertinent Diagnosis Abdominal pain, N/V Current Diet NPO Labs/Tests Na 136 K 3.4 BUN 33 Cr 3.5 BG 232 Pertinent Medications 1/2 NS at 100ml/hr Height 5 ft 9 in Weight 122.47 kg [place] Body Weight (kg) 65.90 BMI 39.9 Weight change and time frame 5% wt loss in 5 days Weight Status Morbidly Obese Subjective/Other Information Consult for diet education. Pt with abdominal pain and has not ate anything since . Pt UBW 284lbs. Pt does not consume banana. Pt states not taking medications due to being sick. Pt will be ok to have ONS. Burn Absent Trauma Absent GI Symptoms Nausea,Vomiting,Other Current % PO Negligible Minimum of two criteria Yes Energy Intake (severe) < or equal to 50% Estimated Energy Requirement > or equal to 5 days Interpretation of Weight Loss (severe) >2% in 1 week #2 Nutrition Diagnosis Malnutrition Etiology chronic illness As Evidenced by Signs and Symptoms 5% wt loss in 5 day, less than 50% of meals in 5 days #1 Nutrition Diagnosis Inadequate oral intake Etiology abdominal pain As Evidenced by Signs and Symptoms Pt with N/V and unable to consume PO Is patient on ventilator? No Is Patient Ambulatory and/or Out of Bed Yes REE-([place] or-ambulatory/OOB) [ 2533.804 [id number]] Kcal/Kg value to use for calculation 15 Approximate Energy Requirements Using 1837 kcal/Kg Calculation Used for Recommendations Kcal/kg Additional Notes Protein needs are 75-94g (0.8- 1g/kg 93.5g/kg) Fluid needs are 1 ml/kcal Nutrition Intervention Change Diet Order: Advance diet as feasible Add Supplement/Snack (indicate name/kcal once diet advanced Ensure /protein ) clear BID or Ensure Enlive BID Goal #1 Advance diet as feasible Anticipated Discharge Needs: Unable to determine at this time Follow-Up By: 11/03/20 Additional Comments Follow for diet advancement, intakes and add ONS
[2020-11-01 19:22] LABS: Hematocrit 45.5 % (30.3-42.9); Hemoglobin 14.7 gm/dl (10.1-14.3); Mean Corpuscular HGB Conc 32 % (30-34); Mean Corpuscular Volume 87 fl (79-97); Platelet Count 432 K/mm3 (140-440); Red Blood Count 5.21 M/mm3 (3.65-5.03); Red Cell Distribution Width 15.2 % (13.2-15.2)
[2020-11-01 19:27] LABS: INR 1.1 (0.87-1.13)
[2020-11-01] MEDS: PANTOPRAZOLE 40 MG INJ IV SCH (19:32)
--- NOTE | 2020-11-01 19:42 | Event Note ---
Date: 11/01/[address] Cunningham evaluated the patient, feels that patient has possible ischemic colitis, new set of labs ordered stat And requested stat surgical consult for possible surgery tonight. I called and discussed with on-call surgeon Dr. Ziegler's And discussed the case and GI recommendations[GI has already contacted Dr. Ziegler] and possible surgical procedure tonight. Lactic acid is within normal limits Severe hypokalemia; potassium 2.9 Replenished with IV KCl 40 mEq Added 20 mEq to normal saline I called patient's mother Ms. Kaplan [phone] and updated patient's condition and the possible surgical procedure. She verbalized understanding Closely monitor the patient and adjust management as needed Plan of care discussed with the patient and her nurse
[2020-11-01] MEDS ORDERED: ROCURONIUM 50 MG/5 ML INJ IV ONE (19:58)
[2020-11-01] MEDS ORDERED: SUCCINYLCHOLINE CHLORIDE 200 MG/10 ML INJ MDV ONE (19:58)
[2020-11-01] MEDS ORDERED: propofoL 200 MG/20 ML VIAL IV ONE (19:59)
[2020-11-01] MEDS ORDERED: fentaNYL 100 MCG/2 ML INJ ONE (19:59)
[2020-11-01] MEDS ORDERED: MIDAZOLAM 2 MG/2 ML INJ ONE (19:59)
[2020-11-01] MEDS ORDERED: SODIUM CHLORIDE 0.45% 1000 ML 1,000 ML with POTASSIUM CHLORIDE 20 MEQ IV SCH (20:05)
--- NOTE | 2020-11-01 20:30 | Anesthesia Consultation ---
Anesthesia Consult and Med Hx Date of service: 11/01/20 - Airway Anesthetic Teeth Evaluation: Good ROM Head & Neck: Adequate Mental/Hyoid Distance: Adequate Mallampati Class: Class II Intubation Access Assessment: Possibly Difficult - Pulmonary Exam CTA: Yes - Cardiac Exam Cardiac Exam: RRR - Pre-Operative Health Status ASA Pre-Surgery Classification: ASA4, Emergency Proposed Anesthetic Plan: General - Pulmonary Hx Smoking: Yes (3 cigs a day) - Cardiovascular System Hx Hypertension: Yes - Gastrointestinal Hx Gastroesophageal Reflux Disease: Yes - Endocrine Hx Renal Disease: Yes (stage 4) Hx Liver Disease: Yes (stage 4) Hx Non-Insulin Dependent Diabetes: Yes - Additional Comments Anesthesia Medical History Comments: pt in with abdominal pain, pt last BG >160. uncontolled hypertion, pt denies and food today, no h/o of problems with anestheisa
--- NOTE | 2020-11-01 20:30 | Anesthesia Day of Surgery ---
Anesthesia Day of Surgery - Day of Surgery Patient Examined: Yes Patient H&P Reviewed: Yes Patient is NPO: Yes Beta Blockers: No (pt has not taken her BB today)
--- NOTE | 2020-11-01 21:02 | Consultation ---
History of Present Illness Consult date: 11/01/20 Reason for consult: abdominal pain - History of present illness History of present illness: 44 yo female with 24 hour h/o progressive, unrelenting abdominal pain, nausea and vomiting. The pain is most severe in the epigastrium. She is s/p lap nicola and C-sections X 3. She still has her appendix. She has had similar pain for s everal months but it has never been this severe. Prior outpt evaluation has been negative. Past History Past Medical History: diabetes, hypertension, renal failure (Stage 4 CKD), other (Gout) Past Surgical History: cholecystectomy Social history: denies: smoking, alcohol abuse Family history: no significant family history Medications and Allergies Allergies Allergy/AdvReac Type Severity Reaction Status Date / Time No Known Allergies Allergy Verified 11/01/20 02:12 Home Medications Medication Instructions Recorded Confirmed Last Taken Type Semaglutide [Ozempic] 0.5 mg SQ 1XW 11/01/20 11/01/20 Unknown History Active Meds: Active Medications Acetaminophen (Acetaminophen 325 Mg Tab) 650 mg PO Q4H PRN PRN Reason: Pain MILD(1-3)/Fever >100.5/PACHECO Albuterol (Albuterol 2.5 Mg/3 Ml Nebu) 2.5 mg IH Q4HRT PRN PRN Reason: Shortness Of Breath Albuterol/Ipratropium (Ipratropium/Albuterol Sulfate 3 Ml Ampul.Neb) 1 ampul IH Q6HRT [facility] Last Admin: 11/01/20 19:54 Dose: Not Given Documented by: Dextrose (Dextrose 50% In Water (25gm) 50 Ml Syringe) 50 ml IV Q30MIN PRN; Protocol PRN Reason: Hypoglycemia Famotidine (Famotidine 20 Mg/2 Ml Inj) 20 mg IV DAILY [facility] Last Admin: 11/01/20 09:51 Dose: Not Given Documented by: Heparin Sodium (Porcine) (Heparin 5,000 Unit/1 Ml Vial) 5,000 unit SUB-Q Q8HR [facility] Last Admin: 11/01/20 13:12 Dose: Not Given Documented by: Hydralazine HCl (Hydralazine 25 Mg Tab) 50 mg PO Q8HR [facility] Last Admin: 11/01/20 12:00 Dose: 50 mg Documented by: Hydralazine HCl (Hydralazine 20 Mg/1 Ml Inj) 10 mg IV Q4H PRN PRN Reason: htn Last Admin: 11/01/20 15:33 Dose: 10 mg Documented by: Metronidazole (Flagyl 500 Mg/100 Ml) 500 mg in 100 mls @ 100 mls/hr IV Q8H [facility]; Protocol Last Admin: 11/01/20 19:57 Dose: 100 mls/hr Documented by: Piperacillin Sod/Tazobactam Sod (Zosyn/Ns 3.375gm/50ml) 3.375 gm in 50 mls @ 100 mls/hr IV Q8H [facility]; Protocol Last Admin: 11/01/20 13:14 Dose: 100 mls/hr Documented by: Potassium Chloride (Kcl 10meq/100ml) 10 meq in 100 mls @ 100 mls/hr IV Q1H [facility] Stop: 11/01/20 23:59 Potassium Chloride 20 meq/ (Sodium Chloride) 1,010 mls @ 100 mls/hr IV DIRECT [facility] Insulin Human Lispro (Insulin Lispro 100 Unit/Ml) 0 unit SUB-Q Q6HR [facility]; Protocol Last Admin: 11/01/20 18:49 Dose: Not Given Documented by: Morphine Sulfate (Morphine 2 Mg/1 Ml Inj) 2 mg IV Q4H PRN PRN Reason: Pain, Moderate (4-6) Last Admin: 11/01/20 17:53 Dose: 2 mg Documented by: Ondansetron HCl (Ondansetron 4 Mg/2 Ml Inj) 4 mg IV Q8H PRN PRN Reason: Nausea And Vomiting Last Admin: 11/01/20 14:17 Dose: 4 mg Documented by: Ondansetron HCl (Ondansetron 4 Mg/2 Ml Inj) 4 mg IV Q4H PRN PRN Reason: Nausea And Vomiting Pantoprazole Sodium (Pantoprazole 40 Mg Inj) 40 mg IV BID [facility] Last Admin: 11/01/20 19:32 Dose: 40 mg Documented by: Sodium Chloride (Sodium Chloride 0.9% 10 Ml Flush Syringe) 10 ml IV BID [facility] Last Admin: 11/01/20 12:01 Dose: 10 ml Documented by: Sodium Chloride (Sodium Chloride 0.9% 10 Ml Flush Syringe) 10 ml IV PRN PRN PRN Reason: LINE FLUSH Review of Systems All systems: negative (none) Exam Vital Signs Temp Pulse Resp BP Pulse Ox 97.7 F 122 H 18 188/138 98 11/01/20 01:40 11/01/20 01:40 11/01/20 01:40 11/01/20 01:40 11/01/20 01:40 - General physical appearance Positive: well developed, well nourished, severe distress, severe pain, obese - Eyes Positive: PERRL, normal occular movement - ENT Positive: normal pinna, normal nares, normal mucosa, no hearing loss, no congestion - Neck Positive: no masses, no bruits, trachea midline, no venous distension - Respiratory Positive: normal expansion, normal respiratory effort, clear to auscultation - Cardiovascular Rhythm: regular Heart Sounds: Present: S1 & S2. Absent: rub, click - Extremities Extremities: no ischemia, pulses symmetrical, No edema - Breasts Breasts: normal, no mass, no skin changes - Abdomen Abdomen: Present: soft, bowel sounds hypoactive, other (Severe tenderness in the epigastrium with early rebound and guarding.) Hernia: none - Genitourinary Male Genitourinary: normal Female Genitourinary: normal - Integumentary no rash, no growths, no abnormal pigmentation - Neurologic Neurologic: alert and oriented to time, place and person, motor strength and sensation are grossly intact - Musculoskeletal normal gait, normal posture - Psychiatric Psychiatric: appropriate mood/affect, intact judgment & insight Results - Labs 11/01/20 18:36 11/01/20 18:35 Abnormal lab results 11/01/20 11/01/20 11/01/20 Range/Units 01:47 01:47 12:07 WBC 23.5 H (4.5-11.0) K/mm3 RBC 5.18 H (3.65-5.03) M/mm3 Hgb 14.7 H (10.1-14.3) gm/dl Hct 44.2 H (30.3-42.9) % Plt Count 462 H (140-440) K/mm3 Seg Neuts % (Manual) 90.0 H (40.0-70.0) % Lymphocytes % (Manual) 8.0 L (13.4-35.0) % Seg Neutrophils # Man 21.2 H (1.8-7.7) K/mm3 Sodium 136 L (137-145) mmol/L Potassium 3.4 L (3.6-5.0) mmol/L Chloride 95.6 L (98-107) mmol/L Carbon Dioxide (22-30) mmol/L BUN 33 H (7-17) mg/dL Creatinine 3.5 H (0.6-1.2) mg/dL Glucose 232 H (65-100) mg/dL POC Glucose 186 H (70-105) mg/dL Calcium 10.3 H (8.4-10.2) mg/dL Alkaline Phosphatase 156 H (35-129) units/L Albumin (3.9-5) g/dL 11/01/20 11/01/20 Range/Units 18:35 18:36 WBC 23.5 H (4.5-11.0) K/mm3 RBC 5.21 H (3.65-5.03) M/mm3 Hgb 14.7 H (10.1-14.3) gm/dl Hct 45.5 H (30.3-42.9) % Plt Count (140-440) K/mm3 Seg Neuts % (Manual) (40.0-70.0) % Lymphocytes % (Manual) (13.4-35.0) % Seg Neutrophils # Man (1.8-7.7) K/mm3 Sodium 134 L (137-145) mmol/L Potassium 2.9 L* (3.6-5.0) mmol/L Chloride 94.7 L (98-107) mmol/L Carbon Dioxide 20 L (22-30) mmol/L BUN 31 H (7-17) mg/dL Creatinine 2.9 H (0.6-1.2) mg/dL Glucose 165 H (65-100) mg/dL POC Glucose (70-105) mg/dL Calcium (8.4-10.2) mg/dL Alkaline Phosphatase 136 H (35-129) units/L Albumin 3.5 L (3.9-5) g/dL Diabetes panel 11/01/20 11/01/20 Range/Units 01:47 18:35 Sodium 136 L 134 L (137-145) mmol/L Potassium 3.4 L 2.9 L* (3.6-5.0) mmol/L Chloride 95.6 L 94.7 L (98-107) mmol/L Carbon Dioxide 22 20 L (22-30) mmol/L BUN 33 H 31 H (7-17) mg/dL Creatinine 3.5 H 2.9 H (0.6-1.2) mg/dL Glucose 232 H 165 H (65-100) mg/dL Calcium 10.3 H 9.6 (8.4-10.2) mg/dL AST 23 22 (5-40) units/L ALT 34 28 (7-56) units/L Alkaline Phosphatase 156 H 136 H (35-129) units/L Total Protein 7.8 8.2 (6.3-8.2) g/dL Albumin 4.4 3.5 L (3.9-5) g/dL Calcium panel 11/01/20 11/01/20 Range/Units 01:47 18:35 Calcium 10.3 H 9.6 (8.4-10.2) mg/dL Albumin 4.4 3.5 L (3.9-5) g/dL Pituitary panel 11/01/20 11/01/20 Range/Units 01:47 18:35 Sodium 136 L 134 L (137-145) mmol/L Potassium 3.4 L 2.9 L* (3.6-5.0) mmol/L Chloride 95.6 L 94.7 L (98-107) mmol/L Carbon Dioxide 22 20 L (22-30) mmol/L BUN 33 H 31 H (7-17) mg/dL Creatinine 3.5 H 2.9 H (0.6-1.2) mg/dL Glucose 232 H 165 H (65-100) mg/dL Calcium 10.3 H 9.6 (8.4-10.2) mg/dL Adrenal panel 11/01/20 11/01/20 Range/Units 01:47 18:35 Sodium 136 L 134 L (137-145) mmol/L Potassium 3.4 L 2.9 L* (3.6-5.0) mmol/L Chloride 95.6 L 94.7 L (98-107) mmol/L Carbon Dioxide 22 20 L (22-30) mmol/L BUN 33 H 31 H (7-17) mg/dL Creatinine 3.5 H 2.9 H (0.6-1.2) mg/dL Glucose 232 H 165 H (65-100) mg/dL Calcium 10.3 H 9.6 (8.4-10.2) mg/dL Total Bilirubin 0.20 0.30 (0.1-1.2) mg/dL AST 23 22 (5-40) units/L ALT 34 28 (7-56) units/L Alkaline Phosphatase 156 H 136 H (35-129) units/L Total Protein 7.8 8.2 (6.3-8.2) g/dL Albumin 4.4 3.5 L (3.9-5) g/dL - Imaging CT scan - abdomen: report reviewed CT scan - pelvis: report reviewed Additional studies: Lactic acid is normal. Assessment and Plan - Patient Problems (1) Intractable abdominal pain Current Visit: Yes Status: Acute Plan to address problem: 1) History and presentation is worrisome for ischemic bowel. Recommend diagnostic laparoscopy with possible laparotomy and possible bowel resection and possible ileostomy/colostomy. 2) IV Zosyn 3) Pt is aware of the possibility of a major bowel resection and the sequelae of short bowel syndrome.
[2020-11-01] MEDS ORDERED: BUPIVACAINE/PF (0.5%) 5 MG/1 ML 30 ML VIAL INFILTRATI ONE ×2 (21:26→21:42)
[2020-11-01] MEDS ORDERED: SODIUM CHLORIDE 0.9% IRR 1,500 ML BOTTLE IR ONE (21:43)
[2020-11-01] MEDS ORDERED: HYDROmorphone 1 MG/1 ML INJ ONE (21:54)
[2020-11-01] MEDS ORDERED: NEOSTIGMINE 10MG/10 ML INJ MDV ONE (22:16)
[2020-11-01] MEDS ORDERED: GLYCOPYRROLATE 0.4 MG/2 ML INJ ONE (22:16)
[2020-11-01] MEDS ORDERED: ONDANSETRON 4 MG/2 ML INJ ONE (22:16)
[2020-11-01 22:21] LABS: Total Cells Counted 100
[2020-11-01 22:22] LABS: Large Platelets Rare; Platelet Estimate Consistent w Auto; RBC Morphology Normal
--- NOTE | 2020-11-01 22:36 | Procedure Note ---
Date of procedure: 11/01/20 Pre-op diagnosis: Intractable abdominal pain Post-op diagnosis: same Procedure: Diagnostic laparoscopy Description of procedure: Pt was placed supine on the OR table. GETA was administered. Abdomen was prepped and draped. A small, infraumbilical incision was made and the linea alba incised. Peritoneal cavity was carefully entered. A Marie port was inserted into the peritoneal cavity and pneumoperitoneum established. Two 5 mm ports were inserted into the peritoneal cavity under direct vision in the midline of the suprapubic space and the LLQ. The cecum and appendix were identified and were found to be normal. The small bowel was then run from the ileocecal valve to the ligament of Treitz and there was no evidence of ischemia or inflammation. I then examined the ascending colon, portions of the transverse colon, descending colon and sigmoid colon. Again, there was no evidence of ischemia or inflammation. The expected uterine myoma was noted. The stomach and proximal duodenum were also unremarkable. There was no free fluid within the peritoneal cavity. In short, the diagnostic laparoscopy was unremarkable. The 2 five mm ports were removed with no bleeding from the port entry sites under low pressure. The Marie port was removed and the pneumoperitoneum released. The infraumbilical fascial defect was closed with 2 interrupted sutures of 2-0 Vicryl. Skin incisions were closed with running subcuticular sutures of 4-0 Monocryl. Skin glue was applied to all incisions. Pt tolerated the procedure well and was extubated in the OR. Pt was taken to PACU in stable condition. Findings: Negative diagnostic laparoscopy Anesthesia: GETA Surgeon: VASYL WHARTON Estimated blood loss: minimal Pathology: none Condition: stable Disposition: PACU
[2020-11-01] MEDS ORDERED: SUGAMMADEX SODIUM 200 MG/2 ML VIAL IV ONE (22:39)
[2020-11-02] MEDS: POTASSIUM CHLORIDE 10 MEQ 10 MEQ/100 ML BAG IV SCH ×4 (01:00→04:00)
[2020-11-02] MEDS: IPRATROPIUM/ALBUTEROL SULFATE 3 ML AMPUL.NEB IH SCH ×4 (02:53→19:37)
[2020-11-02] MEDS: metroNIDAZOLE/NS 500 MG/100 ML 500 MG/100 ML BAG IV SCH ×4 (05:09→21:46)
[2020-11-02] MEDS: HEPARIN 5,000 UNIT/1 ML VIAL SUB-Q SCH ×4 (05:19→21:38)
[2020-11-02] MEDS: hydrALAZINE 25 MG TAB PO SCH ×3 (05:35→21:38)
[2020-11-02 05:48] LABS: Basophils # (Auto) 0.1 K/mm3 (0.0-0.1); Basophils % (Auto) 0.4 % (0.0-1.8); Eosinophils # (Auto) 0.1 K/mm3 (0.0-0.4); Eosinophils % (Auto) 0.3 % (0.0-4.3); Hematocrit 38.1 % (30.3-42.9); Hemoglobin 12.5 gm/dl (10.1-14.3); Lymphocytes # (Auto) 2.8 K/mm3 (1.2-5.4); Mean Corpuscular HGB Conc 33 % (30-34); Mean Corpuscular Volume 86 fl (79-97); Monocytes # (Auto) 1.5 K/mm3 (0.0-0.8); Monocytes % (Auto) 7.7 % (0.0-7.3); Platelet Count 361 K/mm3 (140-440); Red Blood Count 4.44 M/mm3 (3.65-5.03); Red Cell Distribution Width 15.5 % (13.2-15.2)
[2020-11-02 06:05] LABS: Calcium 8.5 mg/dL (8.4-10.2)
--- NOTE | 2020-11-02 07:27 | Progress Note ---
Assessment and Plan 1. Abdominal pain/nausea/vomiting -etiology unclear. White count is improved. Symptoms were worrisome for mesenteric ischemia, but laparoscopy negative. CT was done without IV contrast or oral contrast in the emergency room, but shows n o clear findings. Symptoms may have been due to transient infectious process, possibly viral, with underlying visceral hypersensitivity. This is unlikely to be consistent with peptic ulcer disease but empiric proton pump inhibitors are appropriate. -Continue mpiric proton pump inhibitors and antibiotics. - advance diet as per Surgery - if does well, and WBC better tomorrow, may D/C to home then. Subjective Date of service: 11/02/20 Interval history: Pt had negative exploratory laparoscopy last night. She feels much better this AM. Has abd pain, but decreased. No N/V. Objective - Constitutional Vitals: Vital Signs - 12hr 11/01/20 11/01/20 11/01/20 22:46 22:51 22:56 Temperature 97.8 F Pulse Rate 106 H 106 H 106 H Respiratory 12 21 20 Rate Blood Pressure 150/92 161/103 169/94 Blood Pressure [Right] O2 Sat by Pulse 95 97 97 Oximetry 11/01/20 11/01/20 11/02/20 23:01 23:16 04:23 Temperature 98.2 F 97.7 F Pulse Rate 105 H 103 H 112 H Respiratory 20 16 18 Rate Blood Pressure 159/100 184/101 Blood Pressure 150/97 [Right] O2 Sat by Pulse 95 100 98 Oximetry 11/02/20 05:35 Temperature Pulse Rate 112 H Respiratory Rate Blood Pressure 150/77 Blood Pressure [Right] O2 Sat by Pulse Oximetry General appearance: Present: no acute distress, other (Smiling and laughing at times.) - EENT Eyes: PERRL, EOM intact ENT: hearing intact - Respiratory Respiratory effort: normal - Cardiovascular Rhythm: regular Heart Sounds: Present: S1 & S2 - Gastrointestinal General gastrointestinal: Present: soft, tender (Mild, diffuse), hypoactive bowel sounds - Labs CBC & Chem 7: 11/02/20 05:22 11/02/20 05:22 Labs: Abnormal lab results 11/01/20 11/01/20 11/01/20 Range/Units 12:07 16:46 18:35 WBC (4.5-11.0) K/mm3 RBC (3.65-5.03) M/mm3 Hgb (10.1-14.3) gm/dl Hct (30.3-42.9) % RDW (13.2-15.2) % [place] % (Auto) (0.0-7.3) % [place] # (Auto) (0.0-0.8) K/mm3 Seg Neutrophils % (40.0-70.0) % Seg Neuts % (Manual) (40.0-70.0) % Lymphocytes % (Manual) (13.4-35.0) % Seg Neutrophils # (1.8-7.7) K/mm3 Seg Neutrophils # Man (1.8-7.7) K/mm3 Monocytes # (Manual) (0.0-0.8) K/mm3 Sodium 134 L (137-145) mmol/L Potassium 2.9 L* (3.6-5.0) mmol/L Chloride 94.7 L (98-107) mmol/L Carbon Dioxide 20 L (22-30) mmol/L BUN 31 H (7-17) mg/dL Creatinine 2.9 H (0.6-1.2) mg/dL Glucose 165 H (65-100) mg/dL POC Glucose 186 H 184 H (70-105) mg/dL Magnesium (1.7-2.3) mg/dL Alkaline Phosphatase 136 H (35-129) units/L Albumin 3.5 L (3.9-5) g/dL 11/01/20 11/01/20 11/01/20 Range/Units 18:36 20:08 22:54 WBC 23.5 H (4.5-11.0) K/mm3 RBC 5.21 H (3.65-5.03) M/mm3 Hgb 14.7 H (10.1-14.3) gm/dl Hct 45.5 H (30.3-42.9) % RDW (13.2-15.2) % [place] % (Auto) (0.0-7.3) % [place] # (Auto) (0.0-0.8) K/mm3 Seg Neutrophils % (40.0-70.0) % Seg Neuts % (Manual) 84.0 H (40.0-70.0) % Lymphocytes % (Manual) 9.0 L (13.4-35.0) % Seg Neutrophils # (1.8-7.7) K/mm3 Seg Neutrophils # Man 19.7 H (1.8-7.7) K/mm3 Monocytes # (Manual) 1.6 H (0.0-0.8) K/mm3 Sodium (137-145) mmol/L Potassium (3.6-5.0) mmol/L Chloride (98-107) mmol/L Carbon Dioxide (22-30) mmol/L BUN (7-17) mg/dL Creatinine (0.6-1.2) mg/dL Glucose (65-100) mg/dL POC Glucose 160 H 113 H (70-105) mg/dL Magnesium (1.7-2.3) mg/dL Alkaline Phosphatase (35-129) units/L Albumin (3.9-5) g/dL 11/02/20 11/02/20 Range/Units 05:22 05:22 WBC 18.9 H (4.5-11.0) K/mm3 RBC (3.65-5.03) M/mm3 Hgb (10.1-14.3) gm/dl Hct (30.3-42.9) % RDW 15.5 H (13.2-15.2) % [place] % (Auto) 7.7 H (0.0-7.3) % [place] # (Auto) 1.5 H (0.0-0.8) K/mm3 Seg Neutrophils % 76.6 H (40.0-70.0) % Seg Neuts % (Manual) (40.0-70.0) % Lymphocytes % (Manual) (13.4-35.0) % Seg Neutrophils # 14.5 H (1.8-7.7) K/mm3 Seg Neutrophils # Man (1.8-7.7) K/mm3 Monocytes # (Manual) (0.0-0.8) K/mm3 Sodium (137-145) mmol/L Potassium 3.5 L D (3.6-5.0) mmol/L Chloride (98-107) mmol/L Carbon Dioxide (22-30) mmol/L BUN 27 H (7-17) mg/dL Creatinine 2.8 H (0.6-1.2) mg/dL Glucose 117 H (65-100) mg/dL POC Glucose (70-105) mg/dL Magnesium 1.40 L (1.7-2.3) mg/dL Alkaline Phosphatase (35-129) units/L Albumin (3.9-5) g/dL Medications & Allergies - Medications Allergies/Adverse Reactions: Allergies No Known Allergies Allergy (Verified 11/01/20 02:12) Home Medications: Home Medications Medication Instructions Recorded Confirmed Last Taken Type Semaglutide [Ozempic] 0.5 mg SQ 1XW 11/01/20 11/01/20 Unknown History Active Medications: Generic Name Dose Route Start Last Admin Trade Name Freq PRN Reason Stop Dose Admin Acetaminophen 650 mg 11/01/20 05:36 Acetaminophen 325 Mg Tab PO Q4H PRN Pain MILD(1-3)/Fever >100.5/PACHECO Albuterol 2.5 mg 11/01/20 05:36 Albuterol 2.5 Mg/3 Ml Nebu IH Q4HRT PRN Shortness Of Breath Albuterol/Ipratropium 1 ampul 11/01/20 08:00 11/02/20 02:53 Ipratropium/Albuterol Sulfate 3 Ml Ampul.Neb IH Not Given Q6HRT G[facility]ERTT Dextrose 50 ml 11/01/20 05:48 Dextrose 50% In Water (25gm) 50 Ml Syringe IV Q30MIN PRN Hypoglycemia Protocol Famotidine 20 mg 11/01/20 10:00 11/01/20 09:51 Famotidine 20 Mg/2 Ml Inj IV Not Given DAILY G[facility] Heparin Sodium (Porcine) 5,000 unit 11/01/20 06:00 11/02/20 05:24 Heparin 5,000 Unit/1 Ml Vial SUB-Q 5,000 unit Q8HR G[facility]RETT Administration Hydralazine HCl 50 mg 11/01/20 12:00 11/02/20 05:35 Hydralazine 25 Mg Tab PO 50 mg Q8HR G[facility]RETT Administration Hydralazine HCl 10 mg 11/01/20 11:00 11/01/20 23:15 Hydralazine 20 Mg/1 Ml Inj IV 10 mg Q4H PRN Administration htn Metronidazole 500 mg in 100 mls @ 100 mls/hr 11/01/20 06:00 11/02/20 05:09 Flagyl 500 Mg/100 Ml IV 100 mls/hr Q8H [facility]RETT Administration Protocol Piperacillin Sod/Tazobactam Sod 3.375 gm in 50 mls @ 100 mls/hr 11/01/20 14:00 11/01/20 22:00 Zosyn/Ns 3.375gm/50ml IV Not Given Q8H [facility] Protocol Potassium Chloride 20 meq/ 1,010 mls @ 100 mls/hr 11/01/20 20:05 Sodium Chloride IV DIRECT [facility] Insulin Human Lispro 0 unit 11/01/20 06:00 11/02/20 00:00 Insulin Lispro 100 Unit/Ml SUB-Q Not Given Q6HR [facility] Protocol Morphine Sulfate 2 mg 11/01/20 05:36 11/01/20 17:53 Morphine 2 Mg/1 Ml Inj IV 2 mg Q4H PRN Administration Pain, Moderate (4-6) Ondansetron HCl 4 mg 11/01/20 05:36 11/01/20 14:17 Ondansetron 4 Mg/2 Ml Inj IV 4 mg Q8H PRN Administration Nausea And Vomiting Ondansetron HCl 4 mg 11/01/20 14:13 Ondansetron 4 Mg/2 Ml Inj IV Q4H PRN Nausea And Vomiting Pantoprazole Sodium 40 mg 11/01/20 18:18 11/01/20 19:32 Pantoprazole 40 Mg Inj IV 40 mg BID GARRETT Administration Sodium Chloride 10 ml 11/01/20 10:00 11/01/20 12:01 Sodium Chloride 0.9% 10 Ml Flush Syringe IV 10 ml BID GARRETT Administration Sodium Chloride 10 ml 11/01/20 05:36 Sodium Chloride 0.9% 10 Ml Flush Syringe IV PRN PRN LINE FLUSH HEART Score - HEART Score Troponin: Troponin T < 0.010 ng/mL (0.00-0.029) 11/01/20 01:47
[2020-11-02] MEDS: INSULIN LISPRO 100 UNIT/ML SUB-Q SCH ×4 (07:47→19:25)
--- NOTE | 2020-11-02 08:41 | Progress Note ---
Assessment and Plan Assessment and plan: --Hypomagnesemia/hypokalemia Replenish with IV mag sulfate 3 g 1 dose KCl 20 mEq IV 1 dose --possible ischemic colitis; per GI/surgery. S/P negative diagnostic laparoscopy 11/01/2020 No evidence of ischemic colitis Continue IV fluids IV antibiotics, supportive care Postop care and diet per surgery -- acute colitis Current Visit: Yes Status: Acute N.p.o. 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 status Insulin as needed --Chronic kidney disease Current Visit: Yes Status: Acute Closely monitor renal function, avoid nephrotoxins, nephrology consulted --Hypertensive urgency present on admission Current Visit: Yes Status: Acute Hydralazine 10 mg IV every 6 hours as needed. Closely monitor blood pressures and adjust as needed --Leukocytosis Current Visit: Yes Status: Acute Due to acute colitis, trending down -- Intractable abdominal pain Current Visit: Yes Status: Acute Pepcid 20 mg IV every 12 hours. Tylenol 650 mg p.o. every 6 hours as needed. Morphine 2 mg IV every 4 hours as needed --DVT prophylaxis Current Visit: Yes Status: Acute Heparin 5000 units subcu every 8 hours for DVT prophylaxis. Pepcid 20 mg IV every 12 hours for GI prophylaxis. Patient is a full code Closely monitor the patient and adjust management as needed Ambulate as tolerated Advance diet as tolerated Possible discharge in 1 to 2 days if stable Brief history and hospital course; 44-year-old morbidly obese female patient was admitted with intractable nausea vomiting and abdominal pain Being managed as acute colitis with IV antibiotics n.p.o. and IV fluids, evaluated by GI, some concerns about ischemic colitis Evaluated by surgeon, underwent emergency diagnostic laparoscopy which was negative 11/02/2020; there was a concern about ischemic colitis, surgery evaluated per GI recommendations Emergency diagnostic laparoscopy which was negative, continue with fluids and IV antibiotics Postop care and diet per surgery History Interval history: I have seen and examined the patient at the bedside Patient's chart and medications reviewed Diagnostic laparoscopy last night which was negative Patient started on clear liquids, tolerating well Vital signs noted Hospitalist Physical - Constitutional Vitals: Temp Pulse Resp BP Pulse Ox 97.7 F 112 H 18 150/77 98 11/02/20 04:23 11/02/20 05:35 11/02/20 04:23 11/02/20 05:35 11/02/20 04:23 General appearance: Present: no acute distress, well-nourished, obese - EENT Eyes: Present: PERRL, EOM intact - Neck Neck: Present: supple, normal ROM - Respiratory Respiratory effort: normal Respiratory: bilateral: diminished, negative: rales, rhonchi, wheezing - Cardiovascular Rhythm: regular Heart Sounds: Present: S1 & S2 - Extremities Extremities: no ischemia, No edema - Abdominal General gastrointestinal: soft, non-tender, non-distended, normal bowel sounds - Integumentary Integumentary: Present: clear, warm - Psychiatric Psychiatric: appropriate mood/affect, cooperative - Neurologic Neurologic: moves all extremities HEART Score - HEART Score Troponin: Troponin T < 0.010 ng/mL (0.00-0.029) 11/01/20 01:47 Results - Labs CBC & Chem 7: 11/02/20 05:22 11/02/20 05:22 Labs: Laboratory Last Values WBC 18.9 K/mm3 (4.5-11.0) H 11/02/20 05:22 RBC 4.44 M/mm3 (3.65-5.03) 11/02/20 05:22 Hgb 12.5 gm/dl (10.1-14.3) 11/02/20 05:22 Hct 38.1 % (30.3-42.9) D 11/02/20 05:22 MCV 86 fl (79-97) 11/02/20 05:22 MCH 28 pg (28-32) 11/02/20 05:22 MCHC 33 % (30-34) 11/02/20 05:22 RDW 15.5 % (13.2-15.2) H 11/02/20 05:22 Plt Count 361 K/mm3 (140-440) 11/02/20 05:22 Lymph % (Auto) 15.0 % (13.4-35.0) 11/02/20 05:22 Price % (Auto) 7.7 % (0.0-7.3) H 11/02/20 05:22 Eos % (Auto) 0.3 % (0.0-4.3) 11/02/20 05:22 Baso % (Auto) 0.4 % (0.0-1.8) 11/02/20 05:22 Lymph # (Auto) 2.8 K/mm3 (1.2-5.4) 11/02/20 05:22 Price # (Auto) 1.5 K/mm3 (0.0-0.8) H 11/02/20 05:22 Eos # (Auto) 0.1 K/mm3 (0.0-0.4) 11/02/20 05:22 Baso # (Auto) 0.1 K/mm3 (0.0-0.1) 11/02/20 05:22 Add Manual Diff Complete 11/01/20 18:36 Total Counted 100 11/01/20 18:36 Seg Neutrophils % 76.6 % (40.0-70.0) H 11/02/20 05:22 Seg Neuts % (Manual) 84.0 % (40.0-70.0) H 11/01/20 18:36 Lymphocytes % (Manual) 9.0 % (13.4-35.0) L 11/01/20 18:36 Monocytes % (Manual) 7.0 % (0.0-7.3) 11/01/20 18:36 Nucleated RBC % Not Reportable 11/01/20 18:36 Seg Neutrophils # 14.5 K/mm3 (1.8-7.7) H 11/02/20 05:22 Seg Neutrophils # Man 19.7 K/mm3 (1.8-7.7) H 11/01/20 18:36 Band Neutrophils # 0.0 K/mm3 11/01/20 18:36 Lymphocytes # (Manual) 2.1 K/mm3 (1.2-5.4) 11/01/20 18:36 Abs React Lymphs (Man) 0.0 K/mm3 11/01/20 18:36 Monocytes # (Manual) 1.6 K/mm3 (0.0-0.8) H 11/01/20 18:36 Eosinophils # (Manual) 0.0 K/mm3 (0.0-0.4) 11/01/20 18:36 Basophils # (Manual) 0.0 K/mm3 (0.0-0.1) 11/01/20 18:36 Metamyelocytes # 0.0 K/mm3 11/01/20 18:36 Myelocytes # 0.0 K/mm3 11/01/20 18:36 Promyelocytes # 0.0 K/mm3 11/01/20 18:36 Blast Cells # 0.0 K/mm3 11/01/20 18:36 WBC Morphology Not Reportable 11/01/20 18:36 Hypersegmented Neuts Not Reportable 11/01/20 18:36 Hyposegmented Neuts Not Reportable 11/01/20 18:36 Hypogranular Neuts Not Reportable 11/01/20 18:36 Smudge Cells Not Reportable 11/01/20 18:36 Toxic Granulation Not Reportable 11/01/20 18:36 Toxic Vacuolation Not Reportable 11/01/20 18:36 Dohle Bodies Not Reportable 11/01/20 18:36 Pelger-Huet Anomaly Not Reportable 11/01/20 18:36 Torri Rods Not Reportable 11/01/20 18:36 Platelet Estimate Consistent w auto 11/01/20 18:36 Clumped Platelets Not Reportable 11/01/20 18:36 Plt Clumps, EDTA Not Reportable 11/01/20 18:36 Large Platelets Rare 11/01/20 18:36 Giant Platelets Not Reportable 11/01/20 18:36 Platelet Satelliting Not Reportable 11/01/20 18:36 Plt Morphology Comment Not Reportable 11/01/20 18:36 RBC Morphology Normal 11/01/20 18:36 Dimorphic RBCs Not Reportable 11/01/20 18:36 Polychromasia Not Reportable 11/01/20 18:36 Hypochromasia Not Reportable 11/01/20 18:36 Poikilocytosis Not Reportable 11/01/20 18:36 Anisocytosis Not Reportable 11/01/20 18:36 Microcytosis Not Reportable 11/01/20 18:36 Macrocytosis Not Reportable 11/01/20 18:36 Spherocytes Not Reportable 11/01/20 18:36 Pappenheimer Bodies Not Reportable 11/01/20 18:36 Sickle Cells Not Reportable 11/01/20 18:36 Target Cells Not Reportable 11/01/20 18:36 Tear Drop Cells Not Reportable 11/01/20 18:36 Ovalocytes Not Reportable 11/01/20 18:36 Helmet Cells Not Reportable 11/01/20 18:36 [place] Bodies Not Reportable 11/01/20 18:36 [place] Rings Not Reportable 11/01/20 18:36 [place] Cells Not Reportable 11/01/20 18:36 Bite Cells Not Reportable 11/01/20 18:36 Crenated Cell Not Reportable 11/01/20 18:36 Elliptocytes Not Reportable 11/01/20 18:36 Acanthocytes (Spur) Not Reportable 11/01/20 18:36 Rouleaux Not Reportable 11/01/20 18:36 Hemoglobin C Crystals Not Reportable 11/01/20 18:36 Schistocytes Not Reportable 11/01/20 18:36 Malaria parasites Not Reportable 11/01/20 18:36 Mike Bodies Not Reportable 11/01/20 18:36 Hem Pathologist Commnt No 11/01/20 18:36 PT 14.0 Sec. (12.2-14.9) 11/01/20 18:35 INR 1.10 (0.87-1.13) 11/01/20 18:35 Sodium 137 mmol/L (137-145) 11/02/20 05:22 Potassium 3.5 mmol/L (3.6-5.0) L D 11/02/20 05:22 Chloride 99.4 mmol/L (98-107) 11/02/20 05:22 Carbon Dioxide 23 mmol/L (22-30) 11/02/20 05:22 Anion Gap 18 mmol/L 11/02/20 05:22 BUN 27 mg/dL (7-17) H 11/02/20 05:22 Creatinine 2.8 mg/dL (0.6-1.2) H 11/02/20 05:22 Estimated GFR 22 ml/min 11/02/20 05:22 BUN/Creatinine Ratio 10 % 11/02/20 05:22 Glucose 117 mg/dL (65-100) H 11/02/20 05:22 POC Glucose 113 mg/dL (70-105) H 11/01/20 22:54 Lactic Acid 1.20 mmol/L (0.7-2.0) 11/01/20 18:35 Calcium 8.5 mg/dL (8.4-10.2) 11/02/20 05:22 Phosphorus 3.90 mg/dL (2.5-4.5) 11/02/20 05:22 Magnesium 1.40 mg/dL (1.7-2.3) L 11/02/20 05:22 Total Bilirubin 0.30 mg/dL (0.1-1.2) 11/01/20 18:35 AST 22 units/L (5-40) 11/01/20 18:35 ALT 28 units/L (7-56) 11/01/20 18:35 Alkaline Phosphatase 136 units/L (35-129) H 11/01/20 18:35 Troponin T < 0.010 ng/mL (0.00-0.029) 11/01/20 01:47 Total Protein 8.2 g/dL (6.3-8.2) 11/01/20 18:35 Albumin 3.5 g/dL (3.9-5) L 11/01/20 18:35 Albumin/Globulin Ratio 0.7 % 11/01/20 18:35 Lipase 22 units/L (13-60) 11/01/20 01:47 HCG, Qual Negative (Negative) 11/01/20 01:47 Microbiology: Microbiology 11/01/20 05:33 Peripheral/Venous Blood Culture - Preliminary Culture in Progress 11/01/20 04:55 Peripheral/Venous Blood Culture - Preliminary Culture in Progress [place]/IV: Voiding Method Indwelling Catheter Active Medications - Current Medications Current Medications: Generic Name Dose Route Start Last Admin Trade Name Freq PRN Reason Stop Dose Admin Acetaminophen 650 mg 11/01/20 05:36 Acetaminophen 325 Mg Tab PO Q4H PRN Pain MILD(1-3)/Fever >100.5/PACHECO Albuterol 2.5 mg 11/01/20 05:36 Albuterol 2.5 Mg/3 Ml Nebu IH Q4HRT PRN Shortness Of Breath Albuterol/Ipratropium 1 ampul 11/01/20 08:00 11/02/20 08:24 Ipratropium/Albuterol Sulfate 3 Ml Ampul.Neb IH 1 ampul Q6HRT [facility]RETT Administration Dextrose 50 ml 11/01/20 05:48 Dextrose 50% In Water (25gm) 50 Ml Syringe IV Q30MIN PRN Hypoglycemia Protocol Famotidine 20 mg 11/01/20 10:00 11/01/20 09:51 Famotidine 20 Mg/2 Ml Inj IV Not Given DAILY [facility] Heparin Sodium (Porcine) 5,000 unit 11/01/20 06:00 11/02/20 05:24 Heparin 5,000 Unit/1 Ml Vial SUB-Q 5,000 unit Q8HR [facility]RETT Administration Hydralazine HCl 50 mg 11/01/20 12:00 11/02/20 05:35 Hydralazine 25 Mg Tab PO 50 mg Q8HR [facility]TT Administration Hydralazine HCl 10 mg 11/01/20 11:00 11/01/20 23:15 Hydralazine 20 Mg/1 Ml Inj IV 10 mg Q4H PRN Administration htn Metronidazole 500 mg in 100 mls @ 100 mls/hr 11/01/20 06:00 11/02/20 05:09 Flagyl 500 Mg/100 Ml IV 100 mls/hr Q8H [facility] Administration Protocol Piperacillin Sod/Tazobactam Sod 3.375 gm in 50 mls @ 100 mls/hr 11/01/20 14:00 11/01/20 22:00 Zosyn/Ns 3.375gm/50ml IV Not Given Q8H [facility] Protocol Potassium Chloride 20 meq/ 1,010 mls @ 100 mls/hr 11/01/20 20:05 Sodium Chloride IV DIRECT [facility] Insulin Human Lispro 0 unit 11/01/20 06:00 11/02/20 07:47 Insulin Lispro 100 Unit/Ml SUB-Q Not Given Q6HR [facility] Protocol Morphine Sulfate 2 mg 11/01/20 05:36 11/01/20 17:53 Morphine 2 Mg/1 Ml Inj IV 2 mg Q4H PRN Administration Pain, Moderate (4-6) Ondansetron HCl 4 mg 11/01/20 05:36 11/01/20 14:17 Ondansetron 4 Mg/2 Ml Inj IV 4 mg Q8H PRN Administration Nausea And Vomiting Ondansetron HCl 4 mg 11/01/20 14:13 Ondansetron 4 Mg/2 Ml Inj IV Q4H PRN Nausea And Vomiting Pantoprazole Sodium 40 mg 11/01/20 18:18 11/01/20 19:32 Pantoprazole 40 Mg Inj IV 40 mg BID GARRETT Administration Sodium Chloride 10 ml 11/01/20 10:00 11/01/20 12:01 Sodium Chloride 0.9% 10 Ml Flush Syringe IV 10 ml BID GARRETT Administration Sodium Chloride 10 ml 11/01/20 05:36 Sodium Chloride 0.9% 10 Ml Flush Syringe IV PRN PRN LINE FLUSH Nutrition/Malnutrition Assess - Dietary Evaluation Nutrition/Malnutrition Findings: Nutrition Notes Start: 11/01/20 10:19 Freq: Status: Active Protocol: Document 11/01/20 10:19 LP (Rec: 11/01/20 10:33 LP [email or web address]) Nutrition Notes Need for Assessment generated from: MD Order Initial or Follow up Assessment Current Diagnosis CKD(stage I-IV),Diabetes, Hypertension Other Pertinent Diagnosis Abdominal pain, N/V Current Diet NPO Labs/Tests Na 136 K 3.4 BUN 33 Cr 3.5 BG 232 Pertinent Medications 1/2 NS at 100ml/hr Height 5 ft 9 in Weight 122.47 kg Mobile Body Weight (kg) 65.90 BMI 39.9 Weight change and time frame 5% wt loss in 5 days Weight Status Morbidly Obese Subjective/Other Information Consult for diet education. Pt with abdominal pain and has not ate anything since . Pt UBW 284lbs. Pt does not consume banana. Pt states not taking medications due to being sick. Pt will be ok to have ONS. Burn Absent Trauma Absent GI Symptoms Nausea,Vomiting,Other Current % PO Negligible Minimum of two criteria Yes Energy Intake (severe) < or equal to 50% Estimated Energy Requirement > or equal to 5 days Interpretation of Weight Loss (severe) >2% in 1 week #2 Nutrition Diagnosis Malnutrition Etiology chronic illness As Evidenced by Signs and Symptoms 5% wt loss in 5 day, less than 50% of meals in 5 days #1 Nutrition Diagnosis Inadequate oral intake Etiology abdominal pain As Evidenced by Signs and Symptoms Pt with N/V and unable to consume PO Is patient on ventilator? No Is Patient Ambulatory and/or Out of Bed Yes REE-(Labette-St. Jeor-ambulatory/OOB) [ 2533.804 NUTR.[id number]] Kcal/Kg value to use for calculation 15 Approximate Energy Requirements Using 1837 kcal/Kg Calculation Used for Recommendations Kcal/kg Additional Notes Protein needs are 75-94g (0.8- 1g/kg 93.5g/kg) Fluid needs are 1 ml/kcal Nutrition Intervention Change Diet Order: Advance diet as feasible Add Supplement/Snack (indicate name/kcal once diet advanced Ensure /protein ) clear BID or Ensure Enlive BID Goal #1 Advance diet as feasible Anticipated Discharge Needs: Unable to determine at this time Follow-Up By: 11/03/20 Additional Comments Follow for diet advancement, intakes and add ONS
[2020-11-02] MEDS ORDERED: POTASSIUM PHOSPHATE 40 MMOL in SODIUM CHLORIDE 0.9% 500 ML 500 ML IV ONE (08:48)
[2020-11-02] MEDS ORDERED: MAGNESIUM SULFATE 3 GM in SODIUM CHLORIDE 0.9% 100 ML IV ONE (08:53)
[2020-11-02] MEDS: PANTOPRAZOLE 40 MG INJ IV SCH ×3 (09:23→21:38)
[2020-11-02] MEDS: FAMOTIDINE 20 MG/2 ML INJ IV SCH (09:23)
[2020-11-02] MEDS: PIPERACILLIN/TAZOBACTAM 3.375 3.375 GM/50 ML BAG IV SCH ×3 (09:24→22:56)
[2020-11-02] MEDS: MORPHINE 2 MG/1 ML INJ IV PRN ×3 (09:24→21:41)
[2020-11-02 17:29] LABS: Bacteria,Urine 1+ /HPF (Negative); Bilirubin,Urine NEG (Negative); Blood,Urine SM (Negative); Color,Urine Yellow (Yellow); Mucus,Urine FEW /HPF; Urobilinogen,Urine < 2.0 mg/dL (<2.0)
[2020-11-02] MEDS: ACETAMINOPHEN 325 MG TAB PO PRN (18:36)
--- NOTE | 2020-11-02 20:20 | Progress Note ---
Assessment and Plan - Patient Problems (1) Intractable abdominal pain Current Visit: Yes Status: Acute Plan to address problem: 1) Doing well. Will advance to [facility] tomorrow if she continues to do well, remains afebrile and WBC continues to decline. Subjective Date of service: 11/02/20 Patient Reports: Positive: no new complaints, feels better, pain is less, tolerating liquids well, no flatus, no bowel movement, afebrile Objective Vital Signs - 12hr 11/02/20 11/02/20 11/02/20 08:24 09:24 13:57 Pulse Rate Pulse Rate [ 116 H Anterior Bilateral Upper Lobe] Pulse Rate [ 112 H From Monitor] Respiratory 18 20 Rate Respiratory 18 Rate [Anterior Bilateral Upper Lobe] Blood Pressure [Right] O2 Sat by Pulse 92 100 Oximetry 11/02/20 11/02/20 11/02/20 14:01 15:48 18:38 Pulse Rate 120 H Pulse Rate [ 115 H Anterior Bilateral Upper Lobe] Pulse Rate [ From Monitor] Respiratory 20 Rate Respiratory 16 Rate [Anterior Bilateral Upper Lobe] Blood Pressure 149/78 [Right] O2 Sat by Pulse 94 Oximetry 11/02/20 11/02/20 19:38 19:39 Pulse Rate Pulse Rate [ 112 H Anterior Bilateral Upper Lobe] Pulse Rate [ From Monitor] Respiratory Rate Respiratory 16 Rate [Anterior Bilateral Upper Lobe] Blood Pressure [Right] O2 Sat by Pulse 100 Oximetry - Abdomen soft, bowel sounds normal (No obvious tenderness. No rebound or guarding.) - Labs 11/02/20 05:22 11/02/20 05:22 Diabetes panel 11/02/20 Range/Units 05:22 Sodium 137 (137-145) mmol/L Potassium 3.5 L D (3.6-5.0) mmol/L Chloride 99.4 (98-107) mmol/L Carbon Dioxide 23 (22-30) mmol/L BUN 27 H (7-17) mg/dL Creatinine 2.8 H (0.6-1.2) mg/dL Glucose 117 H (65-100) mg/dL Calcium 8.5 (8.4-10.2) mg/dL Calcium panel 11/02/20 Range/Units 05:22 Calcium 8.5 (8.4-10.2) mg/dL Phosphorus 3.90 (2.5-4.5) mg/dL Pituitary panel 11/02/20 Range/Units 05:22 Sodium 137 (137-145) mmol/L Potassium 3.5 L D (3.6-5.0) mmol/L Chloride 99.4 (98-107) mmol/L Carbon Dioxide 23 (22-30) mmol/L BUN 27 H (7-17) mg/dL Creatinine 2.8 H (0.6-1.2) mg/dL Glucose 117 H (65-100) mg/dL Calcium 8.5 (8.4-10.2) mg/dL Adrenal panel 11/02/20 Range/Units 05:22 Sodium 137 (137-145) mmol/L Potassium 3.5 L D (3.6-5.0) mmol/L Chloride 99.4 (98-107) mmol/L Carbon Dioxide 23 (22-30) mmol/L BUN 27 H (7-17) mg/dL Creatinine 2.8 H (0.6-1.2) mg/dL Glucose 117 H (65-100) mg/dL Calcium 8.5 (8.4-10.2) mg/dL
[2020-11-02] MEDS: ONDANSETRON 4 MG/2 ML INJ IV PRN (21:42)
[2020-11-03] MEDS: ACETAMINOPHEN 325 MG TAB PO PRN ×2 (00:53→06:28)
[2020-11-03] MEDS: hydrALAZINE 20 MG/1 ML INJ IV PRN (00:54)
[2020-11-03] MEDS: MORPHINE 2 MG/1 ML INJ IV PRN ×2 (00:59→12:58)
[2020-11-03] MEDS: INSULIN LISPRO 100 UNIT/ML SUB-Q SCH ×2 (01:33→06:20)
[2020-11-03] MEDS: IPRATROPIUM/ALBUTEROL SULFATE 3 ML AMPUL.NEB IH SCH ×3 (02:17→14:27)
[2020-11-03] MEDS: PIPERACILLIN/TAZOBACTAM 3.375 3.375 GM/50 ML BAG IV SCH ×2 (05:17→14:36)
[2020-11-03] MEDS: hydrALAZINE 25 MG TAB PO SCH ×2 (05:17→13:03)
[2020-11-03] MEDS: metroNIDAZOLE/NS 500 MG/100 ML 500 MG/100 ML BAG IV SCH ×2 (05:17→13:07)
[2020-11-03] MEDS: HEPARIN 5,000 UNIT/1 ML VIAL SUB-Q SCH ×2 (05:18→13:09)
[2020-11-03 05:26] VITALS: BP 146/79
[2020-11-03 05:28] LABS: Basophils # (Auto) 0.1 K/mm3 (0.0-0.1); Basophils % (Auto) 0.7 % (0.0-1.8); Eosinophils # (Auto) 0.2 K/mm3 (0.0-0.4); Eosinophils % (Auto) 1.4 % (0.0-4.3); Hematocrit 36.6 % (30.3-42.9); Hemoglobin 12.1 gm/dl (10.1-14.3); Lymphocytes # (Auto) 2.4 K/mm3 (1.2-5.4); Lymphocytes % (Auto) 19.8 % (13.4-35.0); Mean Corpuscular HGB Conc 33 % (30-34); Mean Corpuscular Volume 86 fl (79-97); Monocytes # (Auto) 1.1 K/mm3 (0.0-0.8); Monocytes % (Auto) 8.9 % (0.0-7.3); Platelet Count 324 K/mm3 (140-440); Red Blood Count 4.24 M/mm3 (3.65-5.03); Red Cell Distribution Width 15.4 % (13.2-15.2)
[2020-11-03 05:49] LABS: Calcium 8.3 mg/dL (8.4-10.2)
[2020-11-03] MEDS: POTASSIUM CHLORIDE ER 20 MEQ TAB PO SCH ×2 (06:19→12:36)
--- NOTE | 2020-11-03 10:01 | Progress Note ---
Assessment and Plan Assessment and plan: --Severe hypokalemia; potassium 2.9 replenished with oral KCl 40 mEq x 2 doses Check magnesium and phosphate Closely monitor electrolytes --Hypomagnesemia/hypokalemia Replenished yesterday, monitor electrolytes Patient continues to have severe hypokalemia --Ischemic colitis ruled out; per GI/surgery. 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 status Insulin as needed --Chronic kidney disease Current Visit: Yes Status: Acute Closely monitor renal function, avoid nephrotoxins, nephrology consulted --Hypertensive urgency present on admission Current Visit: Yes Status: Acute Hydralazine 10 mg IV every 6 hours as needed. Closely monitor blood pressures and adjust as needed --Leukocytosis Current Visit: Yes Status: Acute Due to acute colitis, trending down -- Intractable abdominal pain Current Visit: Yes Status: Acute Pepcid 20 mg IV every 12 hours. Tylenol 650 mg p.o. every 6 hours as needed. Morphine 2 mg IV every 4 hours as needed --DVT prophylaxis Current Visit: Yes Status: Acute Heparin 5000 units subcu every 8 hours for DVT prophylaxis. Pepcid 20 mg IV every 12 hours for GI prophylaxis. Patient is a full code Closely monitor the patient and adjust management as needed Ambulate as tolerated Advance diet as tolerated Possible discharge in 1 to 2 days if stable Brief history and hospital course; 44-year-old morbidly obese female patient was admitted with intractable nausea vomiting and abdominal pain Being managed as acute colitis with IV antibiotics n.p.o. and IV fluids, evaluated by GI, some concerns about ischemic colitis Evaluated by surgeon, underwent emergency diagnostic laparoscopy which was negative 11/02/2020; there was a concern about ischemic colitis, surgery evaluated per GI recommendations Emergency diagnostic laparoscopy which was negative, continue with fluids and IV antibiotics Postop care and diet per surgery Hospitalist Physical - Constitutional Vitals: Temp Pulse Resp BP Pulse Ox 98 F 112 H 18 146/79 92 11/03/20 05:25 11/03/20 05:25 11/03/20 05:25 11/03/20 05:25 11/03/20 05:25 General appearance: Present: no acute distress, well-nourished, obese HEART Score - HEART Score Troponin: Troponin T < 0.010 ng/mL (0.00-0.029) 11/01/20 01:47 Results - Labs CBC & Chem 7: 11/03/20 04:56 11/03/20 14:43 Labs: Laboratory Last Values WBC 12.3 K/mm3 (4.5-11.0) H 11/03/20 04:56 RBC 4.24 M/mm3 (3.65-5.03) 11/03/20 04:56 Hgb 12.1 gm/dl (10.1-14.3) 11/03/20 04:56 Hct 36.6 % (30.3-42.9) 11/03/20 04:56 MCV 86 fl (79-97) 11/03/20 04:56 MCH 29 pg (28-32) 11/03/20 04:56 MCHC 33 % (30-34) 11/03/20 04:56 RDW 15.4 % (13.2-15.2) H 11/03/20 04:56 Plt Count 324 K/mm3 (140-440) 11/03/20 04:56 Lymph % (Auto) 19.8 % (13.4-35.0) 11/03/20 04:56 [place] % (Auto) 8.9 % (0.0-7.3) H 11/03/20 04:56 Eos % (Auto) 1.4 % (0.0-4.3) 11/03/20 04:56 Baso % (Auto) 0.7 % (0.0-1.8) 11/03/20 04:56 Lymph # (Auto) 2.4 K/mm3 (1.2-5.4) 11/03/20 04:56 [place] # (Auto) 1.1 K/mm3 (0.0-0.8) H 11/03/20 04:56 Eos # (Auto) 0.2 K/mm3 (0.0-0.4) 11/03/20 04:56 Baso # (Auto) 0.1 K/mm3 (0.0-0.1) 11/03/20 04:56 Add Manual Diff Complete 11/01/20 18:36 Total Counted 100 11/01/20 18:36 Seg Neutrophils % 69.2 % (40.0-70.0) 11/03/20 04:56 Seg Neuts % (Manual) 84.0 % (40.0-70.0) H 11/01/20 18:36 Lymphocytes % (Manual) 9.0 % (13.4-35.0) L 11/01/20 18:36 Monocytes % (Manual) 7.0 % (0.0-7.3) 11/01/20 18:36 Nucleated RBC % Not Reportable 11/01/20 18:36 Seg Neutrophils # 8.5 K/mm3 (1.8-7.7) H 11/03/20 04:56 Seg Neutrophils # Man 19.7 K/mm3 (1.8-7.7) H 11/01/20 18:36 Band Neutrophils # 0.0 K/mm3 11/01/20 18:36 Lymphocytes # (Manual) 2.1 K/mm3 (1.2-5.4) 11/01/20 18:36 Abs React Lymphs (Man) 0.0 K/mm3 11/01/20 18:36 Monocytes # (Manual) 1.6 K/mm3 (0.0-0.8) H 11/01/20 18:36 Eosinophils # (Manual) 0.0 K/mm3 (0.0-0.4) 11/01/20 18:36 Basophils # (Manual) 0.0 K/mm3 (0.0-0.1) 11/01/20 18:36 Metamyelocytes # 0.0 K/mm3 11/01/20 18:36 Myelocytes # 0.0 K/mm3 11/01/20 18:36 Promyelocytes # 0.0 K/mm3 11/01/20 18:36 Blast Cells # 0.0 K/mm3 11/01/20 18:36 WBC Morphology Not Reportable 11/01/20 18:36 Hypersegmented Neuts Not Reportable 11/01/20 18:36 Hyposegmented Neuts Not Reportable 11/01/20 18:36 Hypogranular Neuts Not Reportable 11/01/20 18:36 Smudge Cells Not Reportable 11/01/20 18:36 Toxic Granulation Not Reportable 11/01/20 18:36 Toxic Vacuolation Not Reportable 11/01/20 18:36 Dohle Bodies Not Reportable 11/01/20 18:36 Pelger-Huet Anomaly Not Reportable 11/01/20 18:36 Torri Rods Not Reportable 11/01/20 18:36 Platelet Estimate Consistent w auto 11/01/20 18:36 Clumped Platelets Not Reportable 11/01/20 18:36 Plt Clumps, EDTA Not Reportable 11/01/20 18:36 Large Platelets Rare 11/01/20 18:36 Giant Platelets Not Reportable 11/01/20 18:36 Platelet Satelliting Not Reportable 11/01/20 18:36 Plt Morphology Comment Not Reportable 11/01/20 18:36 RBC Morphology Normal 11/01/20 18:36 Dimorphic RBCs Not Reportable 11/01/20 18:36 Polychromasia Not Reportable 11/01/20 18:36 Hypochromasia Not Reportable 11/01/20 18:36 Poikilocytosis Not Reportable 11/01/20 18:36 Anisocytosis Not Reportable 11/01/20 18:36 Microcytosis Not Reportable 11/01/20 18:36 Macrocytosis Not Reportable 11/01/20 18:36 Spherocytes Not Reportable 11/01/20 18:36 Pappenheimer Bodies Not Reportable 11/01/20 18:36 Sickle Cells Not Reportable 11/01/20 18:36 Target Cells Not Reportable 11/01/20 18:36 Tear Drop Cells Not Reportable 11/01/20 18:36 Ovalocytes Not Reportable 11/01/20 18:36 Helmet Cells Not Reportable 11/01/20 18:36 Schwarz-Bostic Bodies Not Reportable 11/01/20 18:36 Orlando Rings Not Reportable 11/01/20 18:36 Ho Cells Not Reportable 11/01/20 18:36 Bite Cells Not Reportable 11/01/20 18:36 Crenated Cell Not Reportable 11/01/20 18:36 Elliptocytes Not Reportable 11/01/20 18:36 Acanthocytes (Spur) Not Reportable 11/01/20 18:36 Rouleaux Not Reportable 11/01/20 18:36 Hemoglobin C Crystals Not Reportable 11/01/20 18:36 Schistocytes Not Reportable 11/01/20 18:36 Malaria parasites Not Reportable 11/01/20 18:36 Mike Bodies Not Reportable 11/01/20 18:36 Hem Pathologist Commnt No 11/01/20 18:36 PT 14.0 Sec. (12.2-14.9) 11/01/20 18:35 INR 1.10 (0.87-1.13) 11/01/20 18:35 Sodium 138 mmol/L (137-145) 11/03/20 04:56 Potassium 2.9 mmol/L (3.6-5.0) L* 11/03/20 04:56 Chloride 99.4 mmol/L (98-107) 11/03/20 04:56 Carbon Dioxide 23 mmol/L (22-30) 11/03/20 04:56 Anion Gap 19 mmol/L 11/03/20 04:56 BUN 22 mg/dL (7-17) H 11/03/20 04:56 Creatinine 2.8 mg/dL (0.6-1.2) H 11/03/20 04:56 Estimated GFR 22 ml/min 11/03/20 04:56 BUN/Creatinine Ratio 8 % 11/03/20 04:56 Glucose 121 mg/dL (65-100) H 11/03/20 04:56 POC Glucose 136 mg/dL (70-105) H 11/03/20 06:56 Lactic Acid 1.20 mmol/L (0.7-2.0) 11/01/20 18:35 Calcium 8.3 mg/dL (8.4-10.2) L 11/03/20 04:56 Phosphorus 3.90 mg/dL (2.5-4.5) 11/02/20 05:22 Magnesium 1.40 mg/dL (1.7-2.3) L 11/02/20 05:22 Total Bilirubin 0.30 mg/dL (0.1-1.2) 11/01/20 18:35 AST 22 units/L (5-40) 11/01/20 18:35 ALT 28 units/L (7-56) 11/01/20 18:35 Alkaline Phosphatase 136 units/L (35-129) H 11/01/20 18:35 Troponin T < 0.010 ng/mL (0.00-0.029) 11/01/20 01:47 Total Protein 8.2 g/dL (6.3-8.2) 11/01/20 18:35 Albumin 3.5 g/dL (3.9-5) L 11/01/20 18:35 Albumin/Globulin Ratio 0.7 % 11/01/20 18:35 Lipase 22 units/L (13-60) 11/01/20 01:47 HCG, Qual Negative (Negative) 11/01/20 01:47 Urine Color Yellow (Yellow) 11/02/20 14:43 Urine Turbidity Clear (Clear) 11/02/20 14:43 Urine pH 5.0 (5.0-7.0) 11/02/20 14:43 Ur Specific [place] 1.011 (1.003-1.030) 11/02/20 14:43 Urine Protein 100 mg/dl mg/dL (Negative) 11/02/20 14:43 Urine Glucose (UA) Neg mg/dL (Negative) 11/02/20 14:43 Urine Ketones Neg mg/dL (Negative) 11/02/20 14:43 Urine Blood Sm (Negative) 11/02/20 14:43 Urine Nitrite Neg (Negative) 11/02/20 14:43 Urine Bilirubin Neg (Negative) 11/02/20 14:43 Urine Urobilinogen < 2.0 mg/dL (<2.0) 11/02/20 14:43 Ur Leukocyte Esterase Neg (Negative) 11/02/20 14:43 Urine WBC (Auto) 2.0 /HPF (0.0-6.0) 11/02/20 14:43 Urine RBC (Auto) 3.0 /HPF (0.0-6.0) 11/02/20 14:43 Urine Bacteria (Auto) 1+ /HPF (Negative) 11/02/20 14:43 Urine Mucus Few /HPF 11/02/20 14:43 Microbiology: Microbiology 11/01/20 05:33 Peripheral/Venous Blood Culture - Preliminary NO GROWTH AFTER 24 HOURS 11/01/20 04:55 Peripheral/Venous Blood Culture - Preliminary NO GROWTH AFTER 24 HOURS [place]/IV: Voiding Method Toilet Active Medications - Current Medications Current Medications: Generic Name Dose Route Start Last Admin Trade Name Freq PRN Reason Stop Dose Admin Acetaminophen 650 mg 11/01/20 05:36 11/03/20 06:28 Acetaminophen 325 Mg Tab PO 650 mg Q4H PRN Administration Pain MILD(1-3)/Fever >100.5/PACHECO Albuterol 2.5 mg 11/01/20 05:36 Albuterol 2.5 Mg/3 Ml Nebu IH Q4HRT PRN Shortness Of Breath Albuterol/Ipratropium 1 ampul 11/01/20 08:00 11/03/20 08:02 Ipratropium/Albuterol Sulfate 3 Ml Ampul.Neb IH 1 ampul Q6HRT GARRETT Administration Dextrose 50 ml 11/01/20 05:48 Dextrose 50% In Water (25gm) 50 Ml Syringe IV Q30MIN PRN Hypoglycemia Protocol Heparin Sodium (Porcine) 5,000 unit 11/01/20 06:00 11/03/20 05:18 Heparin 5,000 Unit/1 Ml Vial SUB-Q 5,000 unit Q8HR GARRETT Administration Hydralazine HCl 50 mg 11/01/20 12:00 11/03/20 05:17 Hydralazine 25 Mg Tab PO 50 mg Q8HR GARRETT Administration Hydralazine HCl 10 mg 11/01/20 11:00 11/03/20 00:54 Hydralazine 20 Mg/1 Ml Inj IV 10 mg Q4H PRN Administration htn Metronidazole 500 mg in 100 mls @ 100 mls/hr 11/01/20 06:00 11/03/20 06:19 Flagyl 500 Mg/100 Ml IV 11/04/20 05:59 Infused Q8H GARRETT Infusion Protocol Piperacillin Sod/Tazobactam Sod 3.375 gm in 50 mls @ 100 mls/hr 11/01/20 14:00 11/03/20 05:53 Zosyn/Ns 3.375gm/50ml IV Infused Q8H GARRETT Infusion Protocol Insulin Human Lispro 0 unit 11/01/20 06:00 11/03/20 06:20 Insulin Lispro 100 Unit/Ml SUB-Q Not Given Q6HR GARRETT Protocol Morphine Sulfate 2 mg 11/01/20 05:36 11/03/20 00:59 Morphine 2 Mg/1 Ml Inj IV 2 mg Q4H PRN Administration Pain, Moderate (4-6) Ondansetron HCl 4 mg 11/01/20 14:13 Ondansetron 4 Mg/2 Ml Inj IV Q4H PRN Nausea And Vomiting Pantoprazole Sodium 40 mg 11/01/20 18:18 11/02/20 21:38 Pantoprazole 40 Mg Inj IV 40 mg BID GARRETT Administration Potassium Chloride 40 meq 11/03/20 06:00 11/03/20 06:19 Potassium Chloride Er 20 Meq Tab PO 11/03/20 10:01 40 meq Q4HR GARRETT Administration Sodium Chloride 10 ml 11/01/20 10:00 11/03/20 00:54 Sodium Chloride 0.9% 10 Ml Flush Syringe IV 10 ml BID GARRETT Administration Sodium Chloride 10 ml 11/01/20 05:36 Sodium Chloride 0.9% 10 Ml Flush Syringe IV PRN PRN LINE FLUSH Nutrition/Malnutrition Assess - Dietary Evaluation Nutrition/Malnutrition Findings: Nutrition Notes Start: 11/01/20 10:19 Freq: Status: Active Protocol: Document 11/01/20 10:19 LP (Rec: 11/01/20 10:33 LP [id number]) Nutrition Notes Need for Assessment generated from: MD Order Initial or Follow up Assessment Current Diagnosis CKD(stage I-IV),Diabetes, Hypertension Other Pertinent Diagnosis Abdominal pain, N/V Current Diet NPO Labs/Tests Na 136 K 3.4 BUN 33 Cr 3.5 BG 232 Pertinent Medications 1/2 NS at 100ml/hr Height 5 ft 9 in Weight 122.47 kg [place] Body Weight (kg) 65.90 BMI 39.9 Weight change and time frame 5% wt loss in 5 days Weight Status Morbidly Obese Subjective/Other Information Consult for diet education. Pt with abdominal pain and has not ate anything since . Pt UBW 284lbs. Pt does not consume banana. Pt states not taking medications due to being sick. Pt will be ok to have ONS. Burn Absent Trauma Absent GI Symptoms Nausea,Vomiting,Other Current % PO Negligible Minimum of two criteria Yes Energy Intake (severe) < or equal to 50% Estimated Energy Requirement > or equal to 5 days Interpretation of Weight Loss (severe) >2% in 1 week #2 Nutrition Diagnosis Malnutrition Etiology chronic illness As Evidenced by Signs and Symptoms 5% wt loss in 5 day, less than 50% of meals in 5 days #1 Nutrition Diagnosis Inadequate oral intake Etiology abdominal pain As Evidenced by Signs and Symptoms Pt with N/V and unable to consume PO Is patient on ventilator? No Is Patient Ambulatory and/or Out of Bed Yes REE-([facility]-ambulatory/OOB) [ 2533.804 NUTR.MSJOOB] Kcal/Kg value to use for calculation 15 Approximate Energy Requirements Using 1837 kcal/Kg Calculation Used for Recommendations Kcal/kg Additional Notes Protein needs are 75-94g (0.8- 1g/kg 93.5g/kg) Fluid needs are 1 ml/kcal Nutrition Intervention Change Diet Order: Advance diet as feasible Add Supplement/Snack (indicate name/kcal once diet advanced Ensure /protein ) clear BID or Ensure Enlive BID Goal #1 Advance diet as feasible Anticipated Discharge Needs: Unable to determine at this time Follow-Up By: 11/03/20 Additional Comments Follow for diet advancement, intakes and add ONS
--- NOTE | 2020-11-03 10:59 | Progress Note ---
Assessment and Plan 1. Abdominal pain/nausea/vomiting -etiology unclear. White count is down to 12.3. Symptoms were worrisome for mesenteric ischemia, but laparoscopy negative. CT was done without IV contrast or oral contrast in the emergency room, but shows no clear findings. Symptoms may have been due to transient infectious process, possibly viral, with underlying visceral hypersensitivity. This is unlikely to be consistent with peptic ulcer disease but empiric proton pump inhibitors are appropriate. -Continue mpiric proton pump inhibitors and antibiotics as outpatient. - advance diet as per Surgery - okay for D/C from GI standpoint, with outpatient GI f/u in [place] with her physicians. Will sign off. Thanks. Subjective Date of service: 11/03/20 Principal diagnosis: t Interval history: Pt looks great. Jaylyn po, no significant abd pain. Wants to go home. Objective - Constitutional Vitals: Vital Signs - 12hr 11/02/20 11/03/20 23:42 05:25 Temperature 98 F Pulse Rate 112 H Respiratory 18 18 Rate Blood Pressure 146/79 [Right] O2 Sat by Pulse 100 92 Oximetry General appearance: Present: no acute distress - EENT Eyes: PERRL, EOM intact ENT: hearing intact - Respiratory Respiratory effort: normal - Gastrointestinal General gastrointestinal: Present: soft, tender (Minimal) - Labs CBC & Chem 7: 11/03/20 04:56 11/03/20 04:56 Labs: Abnormal lab results 11/03/20 11/03/20 11/03/20 Range/Units 04:56 04:56 06:56 WBC 12.3 H (4.5-11.0) K/mm3 RDW 15.4 H (13.2-15.2) % Williams % (Auto) 8.9 H (0.0-7.3) % Williams # (Auto) 1.1 H (0.0-0.8) K/mm3 Seg Neutrophils # 8.5 H (1.8-7.7) K/mm3 Potassium 2.9 L* (3.6-5.0) mmol/L BUN 22 H (7-17) mg/dL Creatinine 2.8 H (0.6-1.2) mg/dL Glucose 121 H (65-100) mg/dL POC Glucose 136 H (70-105) mg/dL Calcium 8.3 L (8.4-10.2) mg/dL Medications & Allergies - Medications Allergies/Adverse Reactions: Allergies No Known Allergies Allergy (Verified 11/01/20 02:12) Home Medications: Home Medications Medication Instructions Recorded Confirmed Last Taken Type Semaglutide [Ozempic] 0.5 mg SQ 1XW 11/01/20 11/01/20 Unknown History Active Medications: Generic Name Dose Route Start Last Admin Trade Name Freq PRN Reason Stop Dose Admin Acetaminophen 650 mg 11/01/20 05:36 11/03/20 06:28 Acetaminophen 325 Mg Tab PO 650 mg Q4H PRN Administration Pain MILD(1-3)/Fever >100.5/PACHECO Albuterol 2.5 mg 11/01/20 05:36 Albuterol 2.5 Mg/3 Ml Nebu IH Q4HRT PRN Shortness Of Breath Albuterol/Ipratropium 1 ampul 11/01/20 08:00 11/03/20 08:02 Ipratropium/Albuterol Sulfate 3 Ml Ampul.Neb IH 1 ampul Q6HRT GARRETT Administration Dextrose 50 ml 11/01/20 05:48 Dextrose 50% In Water (25gm) 50 Ml Syringe IV Q30MIN PRN Hypoglycemia Protocol Heparin Sodium (Porcine) 5,000 unit 11/01/20 06:00 11/03/20 05:18 Heparin 5,000 Unit/1 Ml Vial SUB-Q 5,000 unit Q8HR GARRETT Administration Hydralazine HCl 50 mg 11/01/20 12:00 11/03/20 05:17 Hydralazine 25 Mg Tab PO 50 mg Q8HR GARRETT Administration Hydralazine HCl 10 mg 11/01/20 11:00 11/03/20 00:54 Hydralazine 20 Mg/1 Ml Inj IV 10 mg Q4H PRN Administration htn Metronidazole 500 mg in 100 mls @ 100 mls/hr 11/01/20 06:00 11/03/20 06:19 Flagyl 500 Mg/100 Ml IV 11/04/20 05:59 Infused Q8H GARRETT Infusion Protocol Piperacillin Sod/Tazobactam Sod 3.375 gm in 50 mls @ 100 mls/hr 11/01/20 14:00 11/03/20 05:53 Zosyn/Ns 3.375gm/50ml IV Infused Q8H GARRETT Infusion Protocol Insulin Human Lispro 0 unit 11/01/20 06:00 11/03/20 06:20 Insulin Lispro 100 Unit/Ml SUB-Q Not Given Q6HR [facility] Protocol Morphine Sulfate 2 mg 11/01/20 05:36 11/03/20 00:59 Morphine 2 Mg/1 Ml Inj IV 2 mg Q4H PRN Administration Pain, Moderate (4-6) Ondansetron HCl 4 mg 11/01/20 14:13 Ondansetron 4 Mg/2 Ml Inj IV Q4H PRN Nausea And Vomiting Pantoprazole Sodium 40 mg 11/01/20 18:18 11/02/20 21:38 Pantoprazole 40 Mg Inj IV 40 mg BID GARRETT Administration Sodium Chloride 10 ml 11/01/20 10:00 11/03/20 00:54 Sodium Chloride 0.9% 10 Ml Flush Syringe IV 10 ml BID GARRETT Administration Sodium Chloride 10 ml 11/01/20 05:36 Sodium Chloride 0.9% 10 Ml Flush Syringe IV PRN PRN LINE FLUSH HEART Score - HEART Score Troponin: Troponin T < 0.010 ng/mL (0.00-0.029) 11/01/20 01:47
[2020-11-03] MEDS ORDERED: POTASSIUM CHLORIDE ER 20 MEQ TAB PO ONE (13:00)
[2020-11-03] MEDS: PANTOPRAZOLE 40 MG INJ IV SCH (13:03)
--- NOTE | 2020-11-03 15:06 | Discharge Summary ---
Providers - Providers Date of Admission: 11/01/20 05:09 Date of discharge: 11/03/20 Attending physician: MARIAA SUAZO 11/01/20 05:36 Consult to Physician [CONS] Routine Comment: Consulting Provider: COLEMAN PRITCHETT Physician Instructions: Reason For Exam: Abdominal pain 11/01/20 05:48 Consult to Dietitian/Nutrition [CONS] Routine Physician Instructions: Reason For Exam: Reason for Consult: Diet education 11/01/20 18:59 Consult to Physician [CONS] Stat Comment: Consulting Provider: VASYL WHARTON Physician Instructions: Reason For Exam: Ischemic bowel[per GI ] Primary care physician: [facility], Hospitalization Reason for admission: Intractable nausea, vomiting and abdominal pain Condition: Stable Pertinent studies: CT abdomen and pelvisSelective colon suggesting mild pancolitis Hepatomegaly, large uterine leiomyoma Procedures: S/P negative diagnostic laparoscopy 11/01/2020 Hospital course: 45-year-old female patient with chronic kidney disease stage IV diabetes hypertension gout was admitted through emergency room with intractable nausea vomiting and abdominal pain , CT abdomen and pelvis showed mild pancolitis, patient was admitted symptomatically managed subsequently evaluated by surgery and GI, both of them felt that patient does not have symptoms consistent with ischemic colitis. Patient underwent diagnostic laparoscopy on 11/01/2020 which was negative, symptomatically managed Symptoms slowly but gradually improved. Today patient is comfortable back to baseline Blood pressures blood sugars closely monitored medications optimized Consultants have cleared for discharge on oral antibiotics Levaquin and Flagyl And follow-up outpatient for further evaluation management Patient is stable at discharge. Discharge diagnosis: --Hypomagnesemia/hypokalemia Replenished and resolved --Ischemic colitis ruled out; per GI/surgery. S/P negative diagnostic laparoscopy 11/01/2020 No evidence of ischemic colitis -- acute colitis Negative diagnostic laparoscopy DC on oral antibiotics --Intractable nausea & vomiting Resolved --Type II diabetes Stable, Accu-Chek sliding scale coverage insulin --Chronic kidney disease Closely monitor renal function, avoid nephrotoxins, --Hypertensive urgency present on admission Hydralazine 10 mg IV every 6 hours as needed. Improved --Leukocytosis Due to acute colitis, trending down --Morbid obesity; BMI 39.9 Advised weight reduction when medically stable -- Intractable abdominal pain Pepcid 20 mg IV every 12 hours. Tylenol 650 mg p.o. every 6 hours as needed. Morphine 2 mg IV every 4 hours as needed Disposition: DC- TO HOME OR SELFCARE Final Discharge Diagnosis (Prints w/discharge instructions): Acute colitis. Ischemic colitis ruled out. Chronic kidney disease. Hypertensive urgency. Leukocytosis/improved. Intractable nausea vomiting. Hypomagnesemia. Hypokalemia. Uterine fibroid. Morbid obesity, BMI 39.9 Time spent for discharge: 35 min Core Measure Documentation - Palliative Care Palliative Care/ Comfort Measures: Not Applicable - Core Measures Any of the following diagnoses?: none Exam - Constitutional Vitals: Temp Pulse Resp BP Pulse Ox 98 F 121 H 20 146/79 96 11/03/20 05:25 11/03/20 14:27 11/03/20 14:27 11/03/20 05:11/03/20 08:02 General appearance: Present: no acute distress, well-nourished, obese (morbidly obese) - EENT Eyes: Present: PERRL, EOM intact - Neck Neck: Present: supple, normal ROM - Respiratory Respiratory effort: normal Respiratory: bilateral: diminished, negative: rales, rhonchi, wheezing - Cardiovascular Rhythm: regular Heart Sounds: Present: S1 & S2 - Extremities Extremities: no ischemia, No edema - Abdominal General gastrointestinal: Present: soft, non-tender, non-distended, normal bowel sounds - Integumentary Integumentary: Present: clear, warm - Musculoskeletal Musculoskeletal: strength equal bilaterally, generalized weakness - Psychiatric Psychiatric: appropriate mood/affect, cooperative - Neurologic Neurologic: moves all extremities Plan Activity: no restrictions Diet: diabetic Additional Instructions: Your blood sugars are high/mild diabetes/strictly follow diabetic diet. Check with primary care physician to monitor blood sugars. Advised to see private HUM[employer] RESOURCES BENEFITS ASSISTANT for your fibroid uterus. Follow private GI in [place] in 1 week. Advised to see fermenting cellar dropper[kidney doctor] in 1 to 2 weeks. If you have worsening symptoms contact MD or go to emergency room as needed Follow up with: JOSUE AYALA MD [Primary Care Provider] - 7 Days Prescriptions: metroNIDAZOLE [Flagyl] 500 mg PO Q8HR #21 tablet RX: Hydralazine HCl 50 mg PO TID #90 tablet levoFLOXacin [Levaquin] 250 mg PO QDAY #7 tablet Pantoprazole [Protonix] 40 mg PO QDAY #30 tablet
--- NOTE | 2020-11-04 10:39 | Electrocardiograph Report ---
[facility] Test Date: 2020-11-03 Test Time: 12:07:44 Pat Name: LORENA TOM Department: Room: A389 1 Gender: F Fish Smoker: MAGNOLIA : 1975 Requested By: MARIAM BORJAS Order Number: [id number] Reading MD: Laurie Freeman Measurements Intervals Nesbit Rate: 108 P: 49 SD: 150 QRS: -28 QRSD: 93 T: 84 QT: 397 QTc: 532 Interpretive Statements Sinus tachycardia Left axis deviation LVH with secondary repolarization abnormality Prolonged QT interval No previous ECG available for comparison Electronically Signed On 11-04-2020 10:39:10 EDT by Laurie Freeman
== END 2020-11-03 19:30 | disposition home or self-care (01) ==
LOC: ED 01:21 → 3A 05:09
PROVIDERS: ADMIT Hospitalist; ATTEND Internal Medicine
DX: K52.9 Noninfective gastroenteritis and colitis, unspecified (principal); I16.0 Hypertensive urgency; E11.22 Type 2 diabetes mellitus with diabetic chronic kidney disease; I12.9 Hypertensive chronic kidney disease with stage 1 through stage 4 chronic kidney disease, or unspecified chronic kidney disease; N18.4 Chronic kidney disease, stage 4 (severe); D72.829 Elevated white blood cell count, unspecified; M10.9 Gout, unspecified; E83.42 Hypomagnesemia; E87.6 Hypokalemia; Z90.49 Acquired absence of other specified parts of digestive tract; Z79.899 Other long term (current) drug therapy
CPT/HCPCS: 36415; 49320; 74176; 80048; 80053; 81001; 82140; 82962; 83036; 83690; 83735; 84100; 84132; 84484; 84703; 85007; 85025; 85610; 87040; 87086; 93005; 94640; 96361; 96365; 96366; 96367; 96368; 96372; 96375; 96376; 99285; C9113; G0378; J0330; J0360; J1170; J1644; J2250; J2270; J2405; J2543; J2704; J2710; J3010; J3475; J3480; J7030; J7040; J1815

== ENCOUNTER 2020-11-04 09:30 | Emergency (ER) | payer MEDICARE ==
[2020-11-04] MEDS ORDERED: SODIUM CHLORIDE 0.9% 500 ML 500 ML IV ONE (10:15)
[2020-11-04 10:41] LABS: Basophils # (Auto) 0.1 K/mm3 (0.0-0.1); Basophils % (Auto) 0.6 % (0.0-1.8); Hematocrit 39.9 % (30.3-42.9); Hemoglobin 12.7 gm/dl (10.1-14.3); Lymphocytes # (Auto) 1.5 K/mm3 (1.2-5.4); Lymphocytes % (Auto) 8.9 % (13.4-35.0); Mean Corpuscular HGB Conc 32 % (30-34); Mean Corpuscular Volume 86 fl (79-97); Monocytes # (Auto) 0.6 K/mm3 (0.0-0.8); Monocytes % (Auto) 3.5 % (0.0-7.3); Platelet Count 433 K/mm3 (140-440); Red Blood Count 4.66 M/mm3 (3.65-5.03); Red Cell Distribution Width 15.4 % (13.2-15.2)
--- NOTE | 2020-11-04 10:42 | XRay Report ---
CHEST 1 VIEW INDICATION / CLINICAL INFORMATION: possible Sepsis, recent surgery, pain. COMPARISON: None available. FINDINGS: SUPPORT DEVICES: None. HEART / MEDIASTINUM: No significant abnormality. LUNGS / PLEURA: No significant pulmonary or pleural abnormality. No pneumothorax. ADDITIONAL FINDINGS: No significant additional findings. IMPRESSION: No acute pulmonary or pleural abnormality Signer Name: David Angel MD FACR Signed: 11/04/2020 10:38 AM Workstation Name: [id number]
[2020-11-04 10:59] LABS: INR 1.07 (0.87-1.13)
[2020-11-04 11:04] LABS: Calcium 9.4 mg/dL (8.4-10.2)
[2020-11-04] MEDS ORDERED: ONDANSETRON 4 MG/2 ML INJ ONE (11:07)
[2020-11-04] MEDS ORDERED: MORPHINE 4 MG/1 ML INJ ONE (11:07)
[2020-11-04] MEDS ORDERED: ONDANSETRON 4 MG/2 ML INJ IV ONE (11:10)
[2020-11-04] MEDS ORDERED: MORPHINE 4 MG/1 ML INJ IV ONE (11:10)
--- NOTE | 2020-11-04 11:14 | Emergency Department Report ---
ED Abdominal Pain HPI - General Chief Complaint: Abdominal Pain Stated Complaint: ABD PAINS Time Seen by Provider: 11/04/20 10:29 Source: patient Mode of arrival: Stretcher Limitations: No Limitations - History of Present Illness Initial Comments: 44-year-old female, history of hypertension, diabetes, stomach ulcers, gout, chronic kidney disease, presents to ED with abdominal pain. Patient was discharged on yesterday for same. Patient states she began having abdominal pain, nausea, vomiting 4 days ago. She presented to the ER for the symptoms [address] scan showed pancolitis, however, there was concern for ischemic colitis. Patient underwent diagnostic laparoscopy which was negative. Patient was discharged on yesterday with prescriptions. Patient states she did not get her prescriptions filled because it was too late when she left the hospital. Patient states upon discharge on yesterday her abdominal pain had somewhat improved. She reports her abdominal pain and vomiting returned this morning. MD Complaint: abdominal pain -: days(s) (4) Location: epigastric Radiation: other (diffuse) Migration to: no migration Severity: moderate Quality: aching Consistency: constant Improves With: nothing Worsens With: nothing Associated Symptoms: nausea, vomiting. denies: diarrhea, fever - Related Data Previous Rx's Medication Instructions Recorded Last Taken Type Hydralazine HCl 50 mg PO TID #90 tablet 11/03/20 Unknown Rx Pantoprazole [Protonix] 40 mg PO QDAY #30 tablet 11/03/20 Unknown Rx levoFLOXacin [Levaquin] 250 mg PO QDAY #7 tablet 11/03/20 Unknown Rx metroNIDAZOLE [Flagyl] 500 mg PO Q8HR #21 tablet 11/03/20 Unknown Rx Dicyclomine [Bentyl] 20 mg PO QID PRN #20 tablet 11/04/20 Unknown Rx Ondansetron [Zofran Odt] 4 mg PO Q8HR PRN #20 tab.rapdis 11/04/20 Unknown Rx Allergies Allergy/AdvReac Type Severity Reaction Status Date / Time No Known Allergies Allergy Verified 11/01/20 02:12 ED Review of Systems ROS: Stated complaint: ABD PAINS Other details as noted in HPI Comment: All other systems reviewed and negative Constitutional: denies: chills, fever Gastrointestinal: abdominal pain, nausea, vomiting. denies: diarrhea ED Past Medical Hx - Past Medical History Previous Medical History?: Yes Hx Hypertension: Yes Hx Diabetes: Yes Hx Liver Disease: Yes (stage 4) Hx Renal Disease: Yes (stage 4) - Surgical History Past Surgical History?: Yes Additional Surgical History: - Social History Smoking Status: Current Some Day Smoker - Medications Home Medications: Home Medications Medication Instructions Recorded Confirmed Last Taken Type Hydralazine HCl 50 mg PO TID #90 tablet 11/03/20 Unknown Rx Pantoprazole [Protonix] 40 mg PO QDAY #30 tablet 11/03/20 Unknown Rx levoFLOXacin [Levaquin] 250 mg PO QDAY #7 tablet 11/03/20 Unknown Rx metroNIDAZOLE [Flagyl] 500 mg PO Q8HR #21 tablet 11/03/20 Unknown Rx Dicyclomine [Bentyl] 20 mg PO QID PRN #20 tablet 11/04/20 Unknown Rx Ondansetron [Zofran Odt] 4 mg PO Q8HR PRN #20 tab.rapdis 11/04/20 Unknown Rx ED Physical Exam - General Limitations: No Limitations General appearance: alert, in no apparent distress - Head Head exam: Present: atraumatic, normocephalic - Eye Eye exam: Present: normal appearance - ENT ENT exam: Present: mucous membranes moist - Neck Neck exam: Present: normal inspection - Respiratory Respiratory exam: Present: normal lung sounds bilaterally. Absent: respiratory distress - Cardiovascular Cardiovascular Exam: Present: normal rhythm, tachycardia - GI/Abdominal GI/Abdominal exam: Present: soft, tenderness (epigastric). Absent: distended - Extremities Exam Extremities exam: Present: normal inspection - Neurological Exam Neurological exam: Present: alert, oriented X3 - Psychiatric Psychiatric exam: Present: normal affect, normal mood - Skin Skin exam: Present: warm, dry, intact, normal color ED Course Vital Signs 11/04/20 11/04/20 11/04/20 09:37 10:10 10:11 Temperature 97.6 F Pulse Rate 110 H 122 H Respiratory 18 Rate Blood Pressure 188/104 203/137 [Right] O2 Sat by Pulse 98 Oximetry 11/04/20 11/04/20 10:58 15:08 Temperature Pulse Rate 101 H 93 H Respiratory 23 18 Rate Blood Pressure 155/63 [Right] O2 Sat by Pulse 97 98 Oximetry ED Medical Decision Making - Lab Data Result diagrams: 11/04/20 10:18 05/25/21 10:18 - Radiology Data Radiology results: report reviewed, image reviewed - Medical Decision Making 44-year-old female presents to ED with abdominal pain, nausea and vomiting. Patient was discharged on yesterday following admission for same symptoms. He did have exploratory laparoscopy. Patient was discharged with 4 prescriptions, however did not get any of them filled. Patient is hypertensive and tachycar dic, but reports she did not take her blood pressure medicine prior to ER arrival. WBC is elevated at 17, however lactic acid is normal. CT scan today is normal, no evidence of colitis like her previous CT from a few days ago. Patient has been given IV fluids, BP meds, pain and nausea medications. She is currently feeling much better and is requesting discharge home. Patient will be given pain and nausea medication prescriptions. She has also been advised to fill her prescriptions that she received on yesterday. Outpatient follow-up with GI advised, return precautions given. - Differential Diagnosis Bowel obstruction, colitis, gastroenteritis Critical care attestation.: If time is entered above; I have spent that time in minutes in the direct care of this critically ill patient, excluding procedure time. ED Disposition Clinical Impression: Nausea & vomiting, Abdominal pain, Uncontrolled hypertension Disposition: TO HOME OR SELFCARE Is pt being admited?: No Condition: Stable Instructions: Abdominal Pain, Adult, Nausea and Vomiting, Adult, Abdominal Pain (ED), Hypertension (ED) Prescriptions: Dicyclomine [Bentyl] 20 mg PO QID PRN #20 tablet PRN Reason: abdominal pain Ondansetron [Zofran Odt] 4 mg PO Q8HR PRN #20 tab.rapdis PRN Reason: Vomiting Referrals: ALEJO RANGEL [Other] - 3-5 Days [facility] [Provider Group] - 3-5 Days Time of Disposition: 15:18
[2020-11-04] MEDS ORDERED: hydrALAZINE 20 MG/1 ML INJ IV ONE (11:18)
[2020-11-04] MEDS ORDERED: MORPHINE 2 MG/1 ML INJ IV ONE ×2 (12:49→12:56)
--- NOTE | 2020-11-04 12:56 | Cat Scan Report ---
CT abdomen pelvis wo con INDICATION: abd pain; recent negative diagnostic laparoscopy. TECHNIQUE: All CT scans at this location are performed using CT dose reduction for ALARA by means of automated e xposure control. COMPARISON: 11/01/2020 FINDINGS: Lung bases are clear of acute disease. Cholecystectomy. Liver, spleen, pancreas, kidneys and adrenals are negative on this noncontrast exam. Abdominal aorta is normal in size. No adenopathy. Pelvis Large (10 cm) uterine leiomyoma. Ovaries appear negative. Urinary bladder and distal ureters are nega tive. Normal appendix. Residual oral contrast is scattered throughout the colon. Today's exam shows no evidence of colitis o r enteritis. No skeletal lesions. IMPRESSION: 1. No acute abnormalities. No evidence of colitis on today's exam. 2. Large uterine leiomyoma. Signer Name: Jose Juan Hernandez MD Signed: 11/04/2020 12:52 PM Workstation Name: [id number]
[2020-11-04] MEDS ORDERED: SODIUM CHLORIDE 0.9% 1000 ML 1,000 ML IV ONE (13:22)
[2020-11-04] MEDS ORDERED: SODIUM CHLORIDE 0.9% 1000 ML 1,000 ML ONE (13:22)
[2020-11-04 14:22] LABS: Bilirubin,Urine NEG (Negative); Blood,Urine LG (Negative); Color,Urine Yellow (Yellow); Mucus,Urine FEW /HPF; Protein,Urine >500 mg/dL (Negative); Urobilinogen,Urine < 2.0 mg/dL (<2.0)
[2020-11-04 15:48] VITALS: BP 155/93
== END 2020-11-04 15:48 | disposition home or self-care (01) ==
LOC: ED 09:30
DX: R10.13 Epigastric pain (principal); R11.2 Nausea with vomiting, unspecified; I10 Essential (primary) hypertension; E11.9 Type 2 diabetes mellitus without complications; F17.200 Nicotine dependence, unspecified, uncomplicated; Z98.890 Other specified postprocedural states; Z79.899 Other long term (current) drug therapy
CPT/HCPCS: 36415; 71045; 74176; 80053; 81001; 82140; 82805; 85025; 85610; 87040; 87086; 96361; 96374; 96375; 96376; 99285; J0360; J2270; J2405; J7030